=== PATIENT | female | born 1955 | race Hispanic/Latino ===

== ENCOUNTER 2017-10-20 18:06 | Observation (INO) | payer MEDICARE, OTHER ==
[2017-10-20 18:25] VITALS: BMI 42.9
[2017-10-20 19:40] LABS: BASO # 0.04 K/mm3 (0.0-2.0); BASO % 0.3 % (0.0-3.0); EOS % 0.2 % (1.5-5.0); GRAN # 11.83 (1.4-6.5); GRAN % 83.9 % (50.0-68.0); HEMOGLOBIN 14.1 g/dL (12.0-16.0); LYMPH # 1.1 (1.2-3.4); LYMPH % 7.7 % (22.0-35.0); MEAN CELL VOLUME 97.2 fl (80.0-105.0); MEAN CORPUSCULAR HEMOGLOBIN 32.9 pg (25.0-35.0); MEAN CORPUSCULAR HGB CONC 33.9 g/dl (31.0-37.0); MEAN PLATELET VOLUME 10.9 fl (7.0-11.0); MONO # 1.1 (0.1-0.6); MONO % 7.9 % (1.0-6.0); RBC 4.28 10^6/uL (3.5-6.1); RED CELL DISTRIBUTION WIDTH 13.3 % (11.5-14.5); WHITE BLOOD COUNT 14.1 10^3/ul (4.5-11.0)
[2017-10-20 19:53] LABS: ALB/GLOB RATIO 1.3 (1.1-1.8); ALT/SGPT 38 U/L (7-56); AMYLASE 43 U/L (35-125); AST/SGOT 35 U/L (14-36); BLOOD UREA NITROGEN 14 mg/dL (7-21); CALCIUM 9.4 mg/dL (8.4-10.5); GFR AFRICAN-AMERICAN > 60; GFR NON-AFRICAN AMERICAN > 60; LIPASE 63 U/L (23-300)
[2017-10-20] MEDS ORDERED: Morphine 4 mg/ml ISec IVP STA (20:08)
[2017-10-20] MEDS ORDERED: Sodium Chloride 0.9% 1,000 ML IV STA (20:08)
[2017-10-20] MEDS ORDERED: Iohexol 350 MG/100 ML VIAL ONE (20:15)
[2017-10-20 20:26] LABS: VENOUS BLOOD GAS BASE EXCESS 1.2 mmol/L (0.0-2.0); VENOUS BLOOD GAS PO2 137 mm/Hg (30-55); VENOUS BLOOD PH 7.41 (7.32-7.43)
[2017-10-20 20:38] LABS: URINE BILIRUBIN NEGATIVE (NEGATIVE); URINE BLOOD LARGE (NEGATIVE); URINE GLUCOSE (UA) NEGATIVE (NEGATIVE); URINE LEUKOCYTE ESTERASE MODERATE Leu/uL (NEGATIVE); URINE NITRATE NEGATIVE (NEGATIVE); URINE PROTEIN 30 mg/dL (<30 mg/dL); URINE UROBILINOGEN 0.2 E.U./dL (<1 E.U./dL)
[2017-10-20 20:39] LABS: URINE APPEARANCE CLEAR (CLEAR); URINE COLOR YELLOW (YELLOW)
[2017-10-20 20:46] LABS: URINE RBC 20 - 25 /hpf (0-2)
[2017-10-20 20:47] LABS: URINE AMORPHOUS SEDIMENT FEW; URINE BACTERIA MANY (NEG)
[2017-10-20] MEDS ORDERED: cefTRIAXone 1 gm 1 GM/100 ML BAG IVPB STA (21:15)
--- NOTE | 2017-10-20 21:20 | ED PDOC ---
Arrival/HPI - General Historian: Patient - History of Present Illness Time/Duration: Other (3 days) Symptom Onset: Gradual Symptom Course: Worsening Quality: Aching, Stabbing Severity Level: 6 <Mally Lanza - Last Filed: 10/20/17 21:17> <Destiny Dang - Last Filed: 10/20/17 22:04> - General Chief Complaint: Abdominal Pain Time Seen by Provider: 10/20/17 18:32 - History of Present Illness Narrative History of Present Illness (Text): 10/20/17 21:17 62-year-old female presents today with a 3 day history of right-sided abdominal pain. Patient states she thought initially that she may have a urinary tract infection could she felt some pain in the lower abdomen. She denies urinary frequency or urgency. Patient states over the past 3 days the pain has radiated into the upper abdomen and to the right flank. Patient complaining of fever and chills. Patient denies chest pain or shortness of breath. Denies dizziness or weakness. Patient denies URI symptoms. Patient states she has a chronic cough. Patient denies vomiting or diarrhea. Denies hematuria. 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 Ganglion cyst - Anesthesia Hx Anesthesia: Yes Hx Anesthesia Reactions: No Hx Malignant Hyperthermia: No <Mally Lanza - Last Filed: 10/20/17 21:17> Family/Social History - Physician Review Nursing Documentation Reviewed: Yes Family/Social History: Unknown Family HX Smoking Status: Heavy Smoker > 10 Cigarettes Daily Hx Alcohol Use: No Hx Substance Use: No <Mally Lanza - Last Filed: 10/20/17 21:17> Allergies/Home Meds <Mally Lanza - Last Filed: 10/20/17 21:17> <Destiny Dang - Last Filed: 10/20/17 22:04> Allergies/Adverse Reactions: Allergies No Known Allergies Allergy (Verified 08/07/16 00:12) Review of Systems - Review of Systems Constitutional: Fatigue, Fevers Respiratory: Cough. absent: SOB Cardiovascular: absent: Chest Pain, Palpitations Gastrointestinal: Abdominal Pain. absent: Diarrhea, Nausea, Vomiting Genitourinary Female: absent: Dysuria, Frequency, Hematuria Musculoskeletal: Back Pain. absent: Arthralgias, Neck Pain Skin: absent: Rash, Pruritis Neurological: absent: Headache, Dizziness Psychiatric: absent: Anxiety, Depression <Mally Lanza - Last Filed: 10/20/17 21:17> Physical Exam Vital Signs Reviewed: Yes Temperature: Afebrile Blood Pressure: Hypertensive Pulse: Tachycardic Respiratory Rate: Normal Appearance: Positive for: Well-Appearing, Non-Toxic, Uncomfortable Pain Distress: Mild Mental Status: Positive for: Alert and Oriented X 3 - Systems Exam Head: Present: Atraumatic Neck: Present: Normal Range of Motion Respiratory/Chest: Present: Clear to Auscultation. No: Tachypneic Cardiovascular: Present: Tachycardic Abdomen: Present: Normal Bowel Sounds, Guarding. No: Tenderness (ruq, rlq tenderness), Distention, Peritoneal Signs, Rebound Back: Present: Normal Inspection, CVA Tenderness (right sided). No: Midline Tenderness, Paraspinal Tenderness Neurological: Present: GCS=15, Speech Normal Skin: Present: Warm, Dry, Normal Color. No: Rashes Psychiatric: Present: Alert, Oriented x 3 <Mally Lanza - Last Filed: 10/20/17 21:17> Vital Signs Temp Pulse Resp BP Pulse Ox 10/20/17 21:58 82 18 115/62 93 L 10/20/17 18:06 99.7 F H 115 H 18 144/77 93 L Medical Decision Making <Mally Lanza - Last Filed: 10/20/17 21:17> <Destiny Dang - Last Filed: 10/20/17 22:04> ED Course and Treatment: 10/20/17 21:22 62-year-old female with right upper and lower quadrant abdominal pain. Low- grade fever, tachycardic. CBC 14.1 CMP wnl Lipase wnl Urinalysis + leukocytes, + bacteria, + wbcs rapid flu negative cxr; wnl blood and urine cultures pending. EKG; pt with UTI, abdominal pain, cva tenderness with fever/tachycardia. will start rocpehin IV. 10/20/17 21:24 case signed out to dr. dang pending CT results and re-evaluation. (Mally Lanza) 10/20/17 21:53 1. There is mild hypodense fatty infiltration of the liver. Mild hepatomegaly. 2. Diverticulosis. 3. There is a 1.0 x 0.8 cm hypodense left adrenal nodule, indeterminate in etiology. This can be further evaluated with a nonemergent MRI. 4. Additional CT findings described above. 10/20/17 22:03 Patient has R CVA tenderness, sirs criteria on arrival, with elevated wbc. Will transfer to observation of pyelonephritis (Destiny Dang) - Lab Interpretations Lab Results: 10/20/17 19:20 10/20/17 19:20 Lab Results 10/20/17 20:30: Urine Color Yellow, Urine Appearance Clear, Urine pH 7.0, Ur Specific [place] 1.015, Urine Protein 30 H, Urine Glucose (UA) Negative, Urine Ketones Negative, Urine Blood Large H, Urine Nitrate Negative, Urine Bilirubin Negative, Urine Urobilinogen 0.2, Ur Leukocyte Esterase Moderate H, Urine RBC 20 - 25, Urine WBC 10 - 15, Ur Epithelial Cells 4 - 5, Amorphous Sediment Few, Urine Bacteria Many, Urine Other Uyeast 10/20/17 20:00: pO2 137 H, VBG pH 7.41, VBG pCO2 41.0, VBG HCO3 26.0, VBG Total CO2 27.3, VBG O2 Sat (Calc) 99.2 H, VBG Base Excess 1.2, VBG Potassium 3.9, Glucose 136 H, Lactate 1.0, FiO2 21.0, Sodium 132.0, Chloride 100.0, Venous Blood Potassium 3.9 10/20/17 19:20: WBC 14.1 H, RBC 4.28, Hgb 14.1, Hct 41.6, MCV 97.2, MCH 32.9, MCHC 33.9, RDW 13.3, Plt Count 197, MPV 10.9, Gran % 83.9 H, Lymph % (Auto) 7.7 L, [place] % (Auto) 7.9 H, Eos % (Auto) 0.2 L, Baso % (Auto) 0.3, Gran # 11.83 H, Lymph # (Auto) 1.1 L, [place] # (Auto) 1.1 H, Eos # (Auto) 0.0, Baso # (Auto) 0.04 10/20/17 19:20: Sodium 134, Potassium 4.1, Chloride 98, Carbon Dioxide 25, Anion Gap 14, BUN 14, Creatinine 0.7, Est GFR ( Amer) > 60, Est GFR (Non- Af Amer) > 60, Random Glucose 127 H, Calcium 9.4, Total Bilirubin 1.2, AST 35, ALT 38, Alkaline Phosphatase 71, Total Protein 7.1, Albumin 4.0, Globulin 3.2, Albumin/Globulin Ratio 1.3, Amylase 43, Lipase 63 10/20/17 19:20: Influenza Typ A,B (EIA) Negative for flu a/b - RAD Interpretation Radiology Orders: 10/20/17 19:00 ABD & PELVIS IV CONTRAST ONLY [CT] Stat CHEST PORTABLE [RAD] Stat - Medication Orders Current Medication Orders: Discontinued Medications Acetaminophen (Tylenol 325mg Tab) 975 mg PO STAT STA Stop: 10/20/17 20:18 Last Admin: 10/20/17 20:20 Dose: 975 mg MAR Pain/Vitals Document 10/20/17 20:20 EQ (Rec: 10/20/17 20:20 EQ [id number]) Pain Reassessment Is This A Pain ReAssessment? No Sleep Is patient sleeping during reassessment? No Presence of Pain Presence of Pain Yes Sodium Chloride (Sodium Chloride 0.9%) 1,000 mls @ 999 mls/hr IV .Q1H1M STA Stop: 10/20/17 21:08 Last Admin: 10/20/17 20:19 Dose: 999 mls/hr eMAR Start Stop Document 10/20/17 20:19 EQ (Rec: 10/20/17 20:19 EQ [id number]) Intravenous Solution Start Date 10/20/17 Start Time 20:19 Ceftriaxone Sodium (Rocephin 1 Gram Ivpb) 1 gm in 100 mls @ 200 mls/hr IVPB STAT STA PRN Reason: Protocol Stop: 10/20/17 21:44 Morphine Sulfate (Morphine) 4 mg IVP STAT STA Stop: 10/20/17 20:09 Last Admin: 10/20/17 20:18 Dose: 4 mg MAR Pain Assessment Document 10/20/17 20:18 EQ (Rec: 10/20/17 20:18 EQ [id number]) Pain Reassessment Is this a pain reassessment? No Sleep Is patient sleeping during reassessment? No Presence of Pain Presence of Pain Yes Pain Scale Used Pain Scale Used Numeric IVP Administration Document 10/20/17 20:18 EQ (Rec: 10/20/17 20:18 EQ [id number]) Charges for Administration # of IVP Administrations 1 Disposition/Present on Arrival - Present on Arrival Any Indicators Present on Arrival: No History of DVT/PE: No History of Uncontrolled Diabetes: No Urinary Catheter: No History of Decub. Ulcer: No History Surgical Site Infection Following: None - Disposition Have Diagnosis and Disposition been Completed?: Yes <Mally Lanza - Last Filed: 10/20/17 21:17> - Present on Arrival Any Indicators Present on Arrival: No - Disposition Have Diagnosis and Disposition been Completed?: Yes Disposition Time: 22:04 Patient Plan: Admission <Destiny Dang - Last Filed: 10/20/17 22:04> - Disposition Diagnosis: Pyelonephritis Disposition: HOSPITALIZED Patient Problems: Current Active Problems Problem Status Onset Pyelonephritis Acute Condition: FAIR Forms: [facility] (Macedonian)
--- NOTE | 2017-10-20 21:50 | CT ---
EXAM: CT Abdomen and Pelvis With Intravenous Contrast EXAM DATE/TIME: 10/20/2017 7:00 PM CLINICAL HISTORY: The patient age is 62 years old and is female; Pain and signs and symptoms; Other: Chills; Abdominal pain; Localized; Right; Prior surgery; Surgery date: 6+ months; Surgery type: HX hysterectomy, HX ureter/bladder surgery; Additional info: Right sided abdominal pain Facility exam id and description: Ct abdpelciv abd pelvis iv contrast only TECHNIQUE: Axial computed tomography images of the abdomen and pelvis with intravenous contrast. All CT scans at this facility use one or more dose reduction techniques, viz.: automated exposure control; ma/kV adjustment per patient size (including targeted exams where dose is matched to indication; i.e. head); or iterative reconstruction technique. Coronal and sagittal reformatted images were created and reviewed. CONTRAST: 100 mL of OMNIPAQUE 350 administered intravenously. COMPARISON: No relevant prior studies available. FINDINGS: Lower thorax: Mild atelectatic change or parenchymal scarring is visualized within the right middle lobe. ABDOMEN: Liver: There is mild hypodense fatty infiltration of the liver. The liver measures 19.4 cm in the craniocaudad dimension, consistent with mild hepatomegaly. No visualized hepatic mass. Gallbladder and bile ducts: No calcified stones. No ductal dilation. Pancreas: Normal contour, without acute peripancreatic stranding. Spleen: No splenomegaly. Adrenals: There is a 1.0 x 0.8 cm hypodense left adrenal nodule, indeterminate in etiology. Kidneys and ureters: No hydronephrosis. No solid mass. Stomach and bowel: Colonic diverticula are identified, without acute inflammatory stranding of the adjacent mesentery. Appendix: No findings to suggest acute appendicitis. PELVIS: Bladder: No mass. Reproductive: The uterus is absent. There is mild stranding or scarring within the adnexa. ABDOMEN and PELVIS: Intraperitoneal space: No free air. Bones/joints: Hypertrophic degenerative changes are noted within the spine. Soft tissues: There is minimal herniation of fat into the umbilicus. There is diastases of the rectus abdominis musculature with mild eventration of the ventral abdominal wall. There is a subcentimeter focus of gas within the subcutaneous tissues of the right ventral abdomen. Vasculature: There is atherosclerotic calcification of the abdominal aorta. No abdominal aortic aneurysm. Lymph nodes: No significant retroperitoneal or intrapelvic lymphadenopathy. IMPRESSION: 1. There is mild hypodense fatty infiltration of the liver. Mild hepatomegaly. 2. Diverticulosis. 3. There is a 1.0 x 0.8 cm hypodense left adrenal nodule, indeterminate in etiology. This can be further evaluated with a nonemergent MRI. 4. Additional CT findings described above.
[2017-10-20] MEDS ORDERED: Albuterol-Ipratrop 3 mg / 0.5 (3 ml) UD IH PRN (23:41)
[2017-10-20] MEDS ORDERED: Sodium Chloride 0.9% 1,000 ML IV SCH (23:45)
--- NOTE | 2017-10-20 23:51 | CP.PCM.HP ---
<Peterson Horvath - Last Filed: 10/20/17 23:58> History of Present Illness - History of Present Illness History of Present Illness: 62-year-old female with past medical history of HTN and COPD presents today with 3 day history of right-sided abdominal pain/flank pain. Patient states she first felt pain on her right flank several days ago. At first she believed she just had a urinary tract infection. She described the pain as sharp and 6/10. She took some naproxen, but it did not help the pain. Patient then states today it spread to where she could feel the pain in her RUQ. thought initially that she may have a urinary tract infection could she felt some pain in the lower abdomen. Along with the pain patient reports having subjective fevers and chills. She denies urinary frequency, urgency, hematuria, chest pain, shortness of breath, nausea, vomiting, or any other complaints at this time. PMH: HTN, COPD PSH: hysterectomy Allergies: NKDA Meds: Amlodipine 5mg, Losartan/HCTZ 100-12.5, Bevespi Social: pack of cigarettes for past 50 years, denies alcohol or illicit drug use Family hx: denies Present on Admission - Present on Admission Any Indicators Present on Admission: No Review of Systems - Constitutional Constitutional: Chills, Fever. absent: Headache - EENT Eyes: absent: Blurred Vision, Change in Vision - Cardiovascular Cardiovascular: absent: Chest Pain, Dyspnea - Respiratory Respiratory: absent: Cough, Dyspnea, Chest Congestion - Gastrointestinal Gastrointestinal: Abdominal Pain. absent: Nausea, Vomiting - Genitourinary Genitourinary: Flank Pain. absent: Difficulty Urinating, Dysuria, Hematuria, Urinary Incontinence, Urinary Frequency, Urinary Hesitance, Urinary Urgency - Musculoskeletal Musculoskeletal: absent: Arthralgias, Joint Swelling - Neurological Neurological: absent: Dizziness, Syncope, Vertigo, Weakness Past Patient History - Infectious Disease Hx of Infectious Diseases: None - Past Social History Smoking Status: Heavy Smoker > 10 Cigarettes Daily - CARDIAC Hx Hypertension: Yes - PULMONARY Hx Chronic Obstructive Pulmonary Disease (COPD): Yes - MUSCULOSKELETAL/RHEUMATOLOGICAL Other/Comment: Reynaud's disease - PSYCHIATRIC Hx Psychophysiologic Disorder: No Hx Substance Use: No - SURGICAL HISTORY Hx Hysterectomy: Yes Other/Comment: Abscess drainage. Ganglion cyst - ANESTHESIA Hx Anesthesia: Yes Hx Anesthesia Reactions: No Hx Malignant Hyperthermia: No Meds Home Medications: Home Medication List Medication Instructions Recorded Confirmed Type Ciprofloxacin [Cipro] 500 mg PO BID 5 Days tab 10/21/17 Rx Allergies/Adverse Reactions: Allergies Allergy/AdvReac Type Severity Reaction Status Date / Time No Known Allergies Allergy Verified 08/07/16 00:12 Physical Exam - Constitutional Appears: Non-toxic, No Acute Distress - Head Exam Head Exam: ATRAUMATIC, NORMAL INSPECTION, NORMOCEPHALIC - Eye Exam Eye Exam: EOMI, Normal appearance, PERRL - ENT Exam ENT Exam: Mucous Membranes Moist - Neck Exam Neck exam: Negative for: Lymphadenopathy, Tenderness - Respiratory Exam Respiratory Exam: Clear to Auscultation Bilateral, NORMAL BREATHING PATTERN - Cardiovascular Exam Cardiovascular Exam: REGULAR RHYTHM, +S1, +S2 - GI/Abdominal Exam GI & Abdominal Exam: Normal Bowel Sounds, Tenderness. absent: Distended, Guarding Additional comments: RUQ tenderness to palpation - Back Exam Back exam: CVA tenderness (R) - Neurological Exam Neurological exam: Alert, Oriented x3 Results - Vital Signs Recent Vital Signs: Last Vital Signs Temp 99.7 F H 10/20/17 18:06 Pulse 82 10/20/17 21:58 Resp 18 10/20/17 21:58 BP 115/62 10/20/17 21:58 Pulse Ox 93 L 10/20/17 21:58 - Labs Result Diagrams: 10/20/17 19:20 10/20/17 19:20 Assessment & Plan - Assessment and Plan (Free Text) Assessment: 62-year-old female with past medical history of HTN and COPD presents today with 3 day history of right-sided abdominal pain/flank pain. Patient states she first felt pain on her right flank several days ago. Plan: 1. Pyelonephritis -EKG pending official read -Chest xray: no active disease -leukocytosis, wbc 14.1 -temp: 99.7 -rocephin given in ED -blood cultures, urine cultures pending -UA showing moderate leuckocyte esterase, large blood -CT Abdomen Pelvis: 1. There is mild hypodense fatty infiltration of the liver. Mild hepatomegaly. 2. Diverticulosis. 3. There is a 1.0 x 0.8 cm hypodense left adrenal nodule, indeterminate in etiology. This can be further evaluated with a nonemergent MRI. 4. Additional CT findings described above. -Continue rocephin -ID consulted, Go, follow recs -NS@100 2. COPD-chronic -duonebs prn 3. HTN-chronic -continue home Amlodipine 5 and Losartan/HCTZ 100-12.5 GI/DVT -protonix -SCD <Katie Toscano - Last Filed: 10/23/17 01:22> Results - Vital Signs Recent Vital Signs: Last Vital Signs Temp 99.7 F H 10/20/17 18:06 Pulse 82 10/20/17 21:58 Resp 18 10/20/17 23:27 BP 115/62 10/20/17 21:58 Pulse Ox 93 L 10/20/17 21:58 - Labs Result Diagrams: 10/21/17 07:00 10/21/17 07:00
[2017-10-21] MEDS ORDERED: Pantoprazole 40 mg EC Tab PO SCH (06:00)
[2017-10-21 07:43] LABS: BASO # 0.03 K/mm3 (0.0-2.0); BASO % 0.2 % (0.0-3.0); EOS % 0.1 % (1.5-5.0); GRAN # 12.3 (1.4-6.5); GRAN % 82.2 % (50.0-68.0); HEMOGLOBIN 13.6 g/dL (12.0-16.0); LYMPH # 1.2 (1.2-3.4); LYMPH % 8.1 % (22.0-35.0); MEAN CELL VOLUME 98.8 fl (80.0-105.0); MEAN CORPUSCULAR HEMOGLOBIN 32.3 pg (25.0-35.0); MEAN CORPUSCULAR HGB CONC 32.7 g/dl (31.0-37.0); MONO # 1.4 (0.1-0.6); MONO % 9.4 % (1.0-6.0); RBC 4.21 10^6/uL (3.5-6.1); RED CELL DISTRIBUTION WIDTH 13.4 % (11.5-14.5)
[2017-10-21 07:58] VITALS: RESP 20
[2017-10-21 08:02] LABS: ALB/GLOB RATIO 1.2 (1.1-1.8); ALBUMIN 3.6 g/dL (3.0-4.8); ALT/SGPT 36 U/L (7-56); AST/SGOT 25 U/L (14-36); BLOOD UREA NITROGEN 10 mg/dL (7-21); GFR AFRICAN-AMERICAN > 60; GFR NON-AFRICAN AMERICAN > 60
[2017-10-21 08:25] VITALS: BP 118/54; PULSE 94; TEMP 98; O2SAT 94
--- NOTE | 2017-10-21 09:56 | RAD ---
HISTORY: abd pain COMPARISON: 03/09/17 FINDINGS: LUNGS: No active pulmonary disease. PLEURA: No significant pleural effusion identified, no pneumothorax apparent. CARDIOVASCULAR: Normal. OSSEOUS STRUCTURES: No significant abnormalities. VISUALIZED UPPER ABDOMEN: Normal. OTHER FINDINGS: None. IMPRESSION: No active disease.
[2017-10-21] MEDS ORDERED: cefTRIAXone 2 GM IN NS 2 GM/100 ML BAG IVPB SCH (10:00)
--- NOTE | 2017-10-21 11:19 | CP.PCM.DIS ---
<Stephanie Ramsay - Last Filed: 10/22/17 13:21> Provider - Provider Date of Admission: 10/20/17 22:06 Attending physician: Marilin Mcneal MD Time Spent in preparation of Discharge (in minutes): 35 Diagnosis - Discharge Diagnosis (1) Nephrolithiasis Status: Acute (2) UTI (urinary tract infection) Status: Acute Hospital Course - Lab Results Lab Results: Most Recent Lab Values WBC 15.0 10^3/ul (4.5-11.0) H 10/21/17 07:00 RBC 4.21 10^6/uL (3.5-6.1) 10/21/17 07:00 Hgb 13.6 g/dL (12.0-16.0) 10/21/17 07:00 Hct 41.6 % (36.0-48.0) 10/21/17 07:00 MCV 98.8 fl (80.0-105.0) 10/21/17 07:00 MCH 32.3 pg (25.0-35.0) 10/21/17 07:00 MCHC 32.7 g/dl (31.0-37.0) 10/21/17 07:00 RDW 13.4 % (11.5-14.5) 10/21/17 07:00 Plt Count 183 10^3/uL (120.0-450.0) 10/21/17 07:00 MPV 11.0 fl (7.0-11.0) 10/21/17 07:00 Gran % 82.2 % (50.0-68.0) H 10/21/17 07:00 Lymph % (Auto) 8.1 % (22.0-35.0) L 10/21/17 07:00 [place] % (Auto) 9.4 % (1.0-6.0) H 10/21/17 07:00 Eos % (Auto) 0.1 % (1.5-5.0) L 10/21/17 07:00 Baso % (Auto) 0.2 % (0.0-3.0) 10/21/17 07:00 Gran # 12.30 (1.4-6.5) H 10/21/17 07:00 Lymph # (Auto) 1.2 (1.2-3.4) 10/21/17 07:00 [place] # (Auto) 1.4 (0.1-0.6) H 10/21/17 07:00 Eos # (Auto) 0.0 (0.0-0.7) 10/21/17 07:00 Baso # (Auto) 0.03 K/mm3 (0.0-2.0) 10/21/17 07:00 pO2 137 mm/Hg (30-55) H 10/20/17 20:00 VBG pH 7.41 (7.32-7.43) 10/20/17 20:00 VBG pCO2 41.0 (40-60) 10/20/17 20:00 VBG HCO3 26.0 mmol/l (21-28) 10/20/17 20:00 VBG Total CO2 27.3 mmol.L (22-28) 10/20/17 20:00 VBG O2 Sat (Calc) 99.2 % (40-65) H 10/20/17 20:00 VBG Base Excess 1.2 mmol/L (0.0-2.0) 10/20/17 20:00 VBG Potassium 3.9 mmol/L (3.6-5.2) 10/20/17 20:00 Sodium 132.0 mmol/L (132-148) 10/20/17 20:00 Chloride 100.0 mmol/L (98-107) 10/20/17 20:00 Glucose 136 mg/dl (65-105) H 10/20/17 20:00 Lactate 1.0 mmol/L (0.7-2.1) 10/20/17 20:00 FiO2 21.0 % 10/20/17 20:00 Sodium 138 mmol/L (132-148) 10/21/17 07:00 Potassium 3.8 mmol/L (3.6-5.0) 10/21/17 07:00 Chloride 103 mmol/L (98-107) 10/21/17 07:00 Carbon Dioxide 27 mmol/L (21-33) 10/21/17 07:00 Anion Gap 12 (10-20) 10/21/17 07:00 BUN 10 mg/dL (7-21) 10/21/17 07:00 Creatinine 0.8 mg/dl (0.7-1.2) 10/21/17 07:00 Est GFR ( Amer) > 60 10/21/17 07:00 Est GFR (Non-Af Amer) > 60 10/21/17 07:00 Random Glucose 143 mg/dL (70-110) H 10/21/17 07:00 Calcium 9.0 mg/dL (8.4-10.5) 10/21/17 07:00 Total Bilirubin 1.2 mg/dL (0.2-1.3) 10/21/17 07:00 AST 25 U/L (14-36) 10/21/17 07:00 ALT 36 U/L (7-56) 10/21/17 07:00 Alkaline Phosphatase 62 U/L (38-126) 10/21/17 07:00 Total Protein 6.5 g/dL (5.8-8.3) 10/21/17 07:00 Albumin 3.6 g/dL (3.0-4.8) 10/21/17 07:00 Globulin 2.9 gm/dL 10/21/17 07:00 Albumin/Globulin Ratio 1.2 (1.1-1.8) 10/21/17 07:00 Amylase 43 U/L (35-125) 10/20/17 19:20 Lipase 63 U/L (23-300) 10/20/17 19:20 Venous Blood Potassium 3.9 mmol/L (3.6-5.2) 10/20/17 20:00 Urine Color Yellow (YELLOW) 10/20/17 20:30 Urine Appearance Clear (CLEAR) 10/20/17 20:30 Urine pH 7.0 (4.7-8.0) 10/20/17 20:30 Ur Specific Kite 1.015 (1.005-1.035) 10/20/17 20:30 Urine Protein 30 mg/dL (<30 mg/dL) H 10/20/17 20:30 Urine Glucose (UA) Negative mg/dL (NEGATIVE) 10/20/17 20:30 Urine Ketones Negative mg/dL (NEGATIVE) 10/20/17 20:30 Urine Blood Large (NEGATIVE) H 10/20/17 20:30 Urine Nitrate Negative (NEGATIVE) 10/20/17 20:30 Urine Bilirubin Negative (NEGATIVE) 10/20/17 20:30 Urine Urobilinogen 0.2 E.U./dL (<1 E.U./dL) 10/20/17 20:30 Ur Leukocyte Esterase Moderate Vargas/uL (NEGATIVE) H 10/20/17 20:30 Urine RBC 20 - 25 /hpf (0-2) 10/20/17 20:30 Urine WBC 10 - 15 /hpf (0-6) 10/20/17 20:30 Ur Epithelial Cells 4 - 5 /hpf (0-5) 10/20/17 20:30 Amorphous Sediment Few 10/20/17 20:30 Urine Bacteria Many (NEG) 10/20/17 20:30 Urine Other Uyeast 10/20/17 20:30 Influenza Typ A,B (EIA) Negative for flu a/b (NEGATIVE) 10/20/17 19:20 - Hospital Course Hospital Course: 62-year-old female with past medical history of HTN and COPD presents today with 3 day history of right-sided flank pain for past few days that radiates to the right groin. CT abdomen showed mild hypodense fatty infiltration of the liver. Mild hepatomegaly, diverticulosis, 1.0 x 0.8 cm hypodense left adrenal nodule, indeterminate in etiology. Pt admitted to dark urine. UA positive for infection and blood. Pt denies urinary symptoms. Pt given IV antibiotics, IV hydration. Pt tolerating food well, afebrile with stable vitals. Denies pain this morning. Pt likely passed stone earlier in ED, pt discharged home, advised to drink plenty of fluids, given antibiotics for UTI. Pt advised to f/u with bushing and broach operator for left adrenal nodule. Discharge Exam - Head Exam Head Exam: ATRAUMATIC, NORMAL INSPECTION, NORMOCEPHALIC - Eye Exam Eye Exam: EOMI, PERRL. absent: Conjunctival injection, Scleral icterus Pupil Exam: NORMAL ACCOMODATION, PERRL. absent: Irregular, Unequal - ENT Exam ENT Exam: Mucous Membranes Moist - Neck Exam Neck exam: Full Rom - Respiratory Exam Respiratory Exam: Clear to PA & Lateral, NORMAL BREATHING PATTERN, UNREMARKABLE. absent: Accessory Muscle Use, Chest Wall Tenderness, Rales, Rhonchi, Respiratory Distress, Stridor - Cardiovascular Exam Cardiovascular Exam: RRR, +S1, +S2. absent: Systolic Murmur - GI/Abdominal Exam GI & Abdominal Exam: Normal Bowel Sounds, Soft. absent: Diminished Bowel Sounds , Distended, Firm, Guarding, Tenderness - Extremities Exam Extremities exam: normal inspection - Back Exam Back exam: NORMAL INSPECTION. absent: CVA tenderness (L), CVA tenderness (R) - Neurological Exam Neurological exam: Alert, Oriented x3 - Psychiatric Exam Psychiatric exam: Normal Affect, Normal Mood - Skin Skin Exam: Dry, Normal Color, Warm Discharge Plan - Discharge Medications Prescriptions: Ciprofloxacin [Cipro] 500 mg PO BID 5 Days tab - Follow Up Plan Condition: FAIR Disposition: HOME/ ROUTINE Instructions: Kidney Stones (DC), Urinary Tract Infection in Women (DC) Additional Instructions: - Take Ciprofloxacin 500 mg PO BID for 5 days. - Pt has a hypodense 1.0 x 0.8 cm hypodense left adrenal nodule. F/u outpatient with bushing and broach operator/ PMD in 1 week. - Drink adequate liquids. - F/u with PMD in 1 week. - Return to ER if any concerns. <Marilin Mcneal - Last Filed: 10/22/17 14:05> Provider - Provider Date of Admission: 10/20/17 22:06 Attending physician: Marilin Mcneal MD Hospital Course - Lab Results Lab Results: Most Recent Lab Values WBC 15.0 10^3/ul (4.5-11.0) H 10/21/17 07:00 RBC 4.21 10^6/uL (3.5-6.1) 10/21/17 07:00 Hgb 13.6 g/dL (12.0-16.0) 10/21/17 07:00 Hct 41.6 % (36.0-48.0) 10/21/17 07:00 MCV 98.8 fl (80.0-105.0) 10/21/17 07:00 MCH 32.3 pg (25.0-35.0) 10/21/17 07:00 MCHC 32.7 g/dl (31.0-37.0) 10/21/17 07:00 RDW 13.4 % (11.5-14.5) 10/21/17 07:00 Plt Count 183 10^3/uL (120.0-450.0) 10/21/17 07:00 MPV 11.0 fl (7.0-11.0) 10/21/17 07:00 Gran % 82.2 % (50.0-68.0) H 10/21/17 07:00 Lymph % (Auto) 8.1 % (22.0-35.0) L 10/21/17 07:00 [place] % (Auto) 9.4 % (1.0-6.0) H 10/21/17 07:00 Eos % (Auto) 0.1 % (1.5-5.0) L 10/21/17 07:00 Baso % (Auto) 0.2 % (0.0-3.0) 10/21/17 07:00 Gran # 12.30 (1.4-6.5) H 10/21/17 07:00 Lymph # (Auto) 1.2 (1.2-3.4) 10/21/17 07:00 [place] # (Auto) 1.4 (0.1-0.6) H 10/21/17 07:00 Eos # (Auto) 0.0 (0.0-0.7) 10/21/17 07:00 Baso # (Auto) 0.03 K/mm3 (0.0-2.0) 10/21/17 07:00 pO2 137 mm/Hg (30-55) H 10/20/17 20:00 VBG pH 7.41 (7.32-7.43) 10/20/17 20:00 VBG pCO2 41.0 (40-60) 10/20/17 20:00 VBG HCO3 26.0 mmol/l (21-28) 10/20/17 20:00 VBG Total CO2 27.3 mmol.L (22-28) 10/20/17 20:00 VBG O2 Sat (Calc) 99.2 % (40-65) H 10/20/17 20:00 VBG Base Excess 1.2 mmol/L (0.0-2.0) 10/20/17 20:00 VBG Potassium 3.9 mmol/L (3.6-5.2) 10/20/17 20:00 Sodium 132.0 mmol/L (132-148) 10/20/17 20:00 Chloride 100.0 mmol/L (98-107) 10/20/17 20:00 Glucose 136 mg/dl (65-105) H 10/20/17 20:00 Lactate 1.0 mmol/L (0.7-2.1) 10/20/17 20:00 FiO2 21.0 % 10/20/17 20:00 Sodium 138 mmol/L (132-148) 10/21/17 07:00 Potassium 3.8 mmol/L (3.6-5.0) 10/21/17 07:00 Chloride 103 mmol/L (98-107) 10/21/17 07:00 Carbon Dioxide 27 mmol/L (21-33) 10/21/17 07:00 Anion Gap 12 (10-20) 10/21/17 07:00 BUN 10 mg/dL (7-21) 10/21/17 07:00 Creatinine 0.8 mg/dl (0.7-1.2) 10/21/17 07:00 Est GFR ( Amer) > 60 10/21/17 07:00 Est GFR (Non-Af Amer) > 60 10/21/17 07:00 Random Glucose 143 mg/dL (70-110) H 10/21/17 07:00 Calcium 9.0 mg/dL (8.4-10.5) 10/21/17 07:00 Total Bilirubin 1.2 mg/dL (0.2-1.3) 10/21/17 07:00 AST 25 U/L (14-36) 10/21/17 07:00 ALT 36 U/L (7-56) 10/21/17 07:00 Alkaline Phosphatase 62 U/L (38-126) 10/21/17 07:00 Total Protein 6.5 g/dL (5.8-8.3) 10/21/17 07:00 Albumin 3.6 g/dL (3.0-4.8) 10/21/17 07:00 Globulin 2.9 gm/dL 10/21/17 07:00 Albumin/Globulin Ratio 1.2 (1.1-1.8) 10/21/17 07:00 Amylase 43 U/L (35-125) 10/20/17 19:20 Lipase 63 U/L (23-300) 10/20/17 19:20 Procalcitonin 0.31 NG/ML (0.19-0.49) 10/21/17 08:15 Venous Blood Potassium 3.9 mmol/L (3.6-5.2) 10/20/17 20:00 Urine Color Yellow (YELLOW) 10/20/17 20:30 Urine Appearance Clear (CLEAR) 10/20/17 20:30 Urine pH 7.0 (4.7-8.0) 10/20/17 20:30 Ur Specific Kite 1.015 (1.005-1.035) 10/20/17 20:30 Urine Protein 30 mg/dL (<30 mg/dL) H 10/20/17 20:30 Urine Glucose (UA) Negative mg/dL (NEGATIVE) 10/20/17 20:30 Urine Ketones Negative mg/dL (NEGATIVE) 10/20/17 20:30 Urine Blood Large (NEGATIVE) H 10/20/17 20:30 Urine Nitrate Negative (NEGATIVE) 10/20/17 20:30 Urine Bilirubin Negative (NEGATIVE) 10/20/17 20:30 Urine Urobilinogen 0.2 E.U./dL (<1 E.U./dL) 10/20/17 20:30 Ur Leukocyte Esterase Moderate Vargas/uL (NEGATIVE) H 10/20/17 20:30 Urine RBC 20 - 25 /hpf (0-2) 10/20/17 20:30 Urine WBC 10 - 15 /hpf (0-6) 10/20/17 20:30 Ur Epithelial Cells 4 - 5 /hpf (0-5) 10/20/17 20:30 Amorphous Sediment Few 10/20/17 20:30 Urine Bacteria Many (NEG) 10/20/17 20:30 Urine Other Uyeast 10/20/17 20:30 Influenza Typ A,B (EIA) Negative for flu a/b (NEGATIVE) 10/20/17 19:20 Attending/Attestation - Attestation I have personally seen and examined this patient.: Yes I have fully participated in the care of the patient.: Yes I have reviewed all pertinent clinical information, including history, physical exam and plan: Yes Notes (Text): 10/22/17 14:02 Patient was seen and examined with medical transcription. Agreed with assessment and plan. 62 F was admitted with Flank pain, no H/O fever or dysurea. UA shows possible UTI.Cultures are negative.Patient pain has improved.She is tolerating diet.She will be discharged home on oral antibiotic and will follow up with PCP. Patient is found to have incidental adrenal nodule, will need out patient work, it was discussed in detail with her. Management plan was discussed in detail with patient. Education was provided.
--- NOTE | 2017-10-21 17:03 | CP.PCM.CON ---
History of Present Illness - History of Present Illness History of Present Illness: Infectious Disease Consultation: October 21, 2017 62 yo female with medical history of HTN and COPD presented with 3 day history of right sided abdominal/flank pain. She rates pain as 6 out of 10. She reports subjective fevers and chills. She was not on antibiotics prior to hospitalization. The patient is able to tolerate solids and liquids. No other complaints. In hospital, no fevers and mild leukocytosis. PMHx: HTN, COPD PSHx: Hysterectomy Allergies: NKDA Social Hx: 1 ppd tobacco use for last 50 years NO EtOH or illicit drug use. Medications: Amlodipine Losartan HCTZ Bevespi Family Hx: none given ROS: Abdominal pain, chills, subjective fevers No chest pain, melena, hematuria, hematemesis, hematochezia, depression, anxiety , diarrhea, vision loss, hearing loss, loss of consciousness, headaches, dizziness, SOB Past Patient History - Infectious Disease Hx of Infectious Diseases: None - Past Social History Smoking Status: Heavy Smoker > 10 Cigarettes Daily - CARDIAC Hx Hypertension: Yes - PULMONARY Hx Chronic Obstructive Pulmonary Disease (COPD): Yes - MUSCULOSKELETAL/RHEUMATOLOGICAL Other/Comment: Reynaud's disease - PSYCHIATRIC Hx Psychophysiologic Disorder: No Hx Substance Use: No - SURGICAL HISTORY Hx Hysterectomy: Yes Other/Comment: Abscess drainage. Ganglion cyst - ANESTHESIA Hx Anesthesia: Yes Hx Anesthesia Reactions: No Hx Malignant Hyperthermia: No Meds Home Medications: Home Medication List Medication Instructions Recorded Confirmed Type Ciprofloxacin [Cipro] 500 mg PO BID 5 Days tab 10/21/17 Rx Allergies/Adverse Reactions: Allergies Allergy/AdvReac Type Severity Reaction Status Date / Time No Known Allergies Allergy Verified 08/07/16 00:12 Physical Exam - Constitutional Appears: Non-toxic, No Acute Distress - Head Exam Head Exam: ATRAUMATIC, NORMOCEPHALIC - Eye Exam Eye Exam: EOMI, PERRL Pupil Exam: NORMAL ACCOMODATION, PERRL - ENT Exam ENT Exam: Mucous Membranes Moist, Normal External Ear Exam, TM's Normal Bilaterally - Neck Exam Neck exam: Positive for: Full Rom, Normal Inspection - Respiratory Exam Respiratory Exam: Clear to Auscultation Bilateral, NORMAL BREATHING PATTERN. absent: Rales, Rhonchi, Wheezes - Cardiovascular Exam Cardiovascular Exam: REGULAR RHYTHM, RRR, +S1, +S2 - GI/Abdominal Exam GI & Abdominal Exam: Normal Bowel Sounds, Soft. absent: Distended Additional comments: questionable RUQ tenderness. - Extremities Exam Extremities exam: Positive for: full ROM, normal inspection - Neurological Exam Neurological exam: Alert, CN II-XII Intact, Oriented x3 - Psychiatric Exam Psychiatric exam: Normal Affect, Normal Mood - Skin Skin Exam: Intact, Normal Color Results - Vital Signs Recent Vital Signs: Last Vital Signs Temp 98.0 F 10/21/17 07:30 Pulse 94 H 10/21/17 07:30 Resp 20 10/21/17 07:30 BP 118/54 L 10/21/17 07:30 Pulse Ox 94 L 10/21/17 07:30 - Labs Result Diagrams: 10/21/17 07:00 10/21/17 07:00 Labs: Laboratory Results - last 24 hr 10/21/17 10/21/17 10/21/17 07:00 07:00 08:15 WBC 15.0 H RBC 4.21 Hgb 13.6 Hct 41.6 MCV 98.8 MCH 32.3 MCHC 32.7 RDW 13.4 Plt Count 183 MPV 11.0 Gran % 82.2 H Lymph % (Auto) 8.1 L [place] % (Auto) 9.4 H Eos % (Auto) 0.1 L Baso % (Auto) 0.2 Gran # 12.30 H Lymph # (Auto) 1.2 [place] # (Auto) 1.4 H Eos # (Auto) 0.0 Baso # (Auto) 0.03 Sodium 138 Potassium 3.8 Chloride 103 Carbon Dioxide 27 Anion Gap 12 BUN 10 Creatinine 0.8 Est GFR ( Amer) > 60 Est GFR (Non-Af Amer) > 60 Random Glucose 143 H Calcium 9.0 Total Bilirubin 1.2 AST 25 ALT 36 Alkaline Phosphatase 62 Total Protein 6.5 Albumin 3.6 Globulin 2.9 Albumin/Globulin Ratio 1.2 Procalcitonin 0.31 Assessment & Plan - Assessment and Plan (Free Text) Assessment: 62 yo female with mild leukocytosis and abdominal pain started on Rocephin in the ER. Urinalysis can be suggestive of UTI. Cannot rule out pyelonephritis. Urine cultures pending. On discharge can consider use of oral Keflex or Cipro/ Levaquin for treatment up to 14 days. Patient showing improvement. She states she feels better today. Thank you for allowing me to participate in the care of the patient, we will follow with you.
--- NOTE | 2017-10-21 23:49 | CARD ---
APPROVED REPORT EKG Measurement Heart [id number] <Conclusion> Normal sinus rhythm Normal ECG
== END 2017-10-21 15:11 | disposition home or self-care (01) ==
LOC: ED 18:06 → ERH 22:06 → INTOOBSV 22:06 → 5RSO 23:19
PROVIDERS: ADMIT Internal Medicine; ATTEND Internal Medicine
DX: N10 Acute pyelonephritis (principal); J44.9 Chronic obstructive pulmonary disease, unspecified; I10 Essential (primary) hypertension; K57.30 Diverticulosis of large intestine without perforation or abscess without bleeding; N20.0 Calculus of kidney; F17.210 Nicotine dependence, cigarettes, uncomplicated; K76.0 Fatty (change of) liver, not elsewhere classified; Z90.710 Acquired absence of both cervix and uterus
CPT/HCPCS: 36415; 71045; 74177; 80053; 81001; 82150; 82803; 83690; 84145; 85025; 87040; 87086; 87804; 93005; 96365; 96375; 99285; G0378; J0696; J2270; J7040; Q9967

== ENCOUNTER 2019-01-09 23:00 | Inpatient (IN) | payer MEDICARE, OTHER ==
[2019-01-09 23:21] VITALS: BMI 20.3
--- NOTE | 2019-01-09 23:40 | ED PDOC ---
Arrival/HPI - General Chief Complaint: Lower Extremity Problem/Injury Time Seen by Provider: 01/09/19 23:08 Historian: Patient - History of Present Illness Narrative History of Present Illness (Text): 01/09/19 23:37 Vicky Brown is a 63 year old female, whose past medical history includes hypertension, COPD, and hysterectomy, who presents to the ED complaining of swelling and redness to right anterior thigh. Patient states she accidentally stuck herself while sewing upLocatelystery at home a few days prior and has developed swelling and redness to her right anterior thigh, with associated discomfort to the area. Patient also notes a small area of redness to her left anterior thigh. Patient reports associated subjective fever at home. Patient denies any fever, chills, shortness of breath, nausea, vomiting, headache, dizziness, or any other complaints. 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 Ganglion cyst - Anesthesia Hx Anesthesia: Yes Hx Anesthesia Reactions: No Hx Malignant Hyperthermia: No Family/Social History - Physician Review Nursing Documentation Reviewed: Yes Family/Social History: Unknown Family HX Smoking Status: Heavy Smoker > 10 Cigarettes Daily Hx Alcohol Use: No Hx Substance Use: No Allergies/Home Meds Allergies/Adverse Reactions: Allergies No Known Allergies Allergy (Verified 08/07/16 00:12) Home Medications: Home Meds Medication Instructions Recorded Confirmed Glycopyrrolate/Formoterol Fum 10.7 gm IH BID 10/21/17 01/09/19 [Bevespi Aerosphere Inhaler] Losartan/Hydrochlorothiazide 1 each PO DAILY 10/21/17 01/09/19 [Losartan-Hctz 100-25 mg Tab] amLODIPine [Norvasc] 5 mg PO DAILY 10/21/17 01/09/19 Review of Systems - Physician Review All systems were reviewed & negative as marked: Yes - Review of Systems Constitutional: Normal. absent: Fevers Eyes: Normal ENT: Normal Respiratory: Normal. absent: SOB, Cough Cardiovascular: Normal. absent: Chest Pain Gastrointestinal: Normal. absent: Abdominal Pain, Nausea, Vomiting Genitourinary Female: Normal. absent: Dysuria, Frequency, Hematuria, Urine Output Changes Musculoskeletal: Normal. absent: Back Pain, Neck Pain Skin: Cellulitis (+bilateral thighs, greater on right) Neurological: Normal. absent: Headache, Dizziness Endocrine: Normal Hemo/Lymphatic: Normal Psychiatric: Normal Physical Exam Vital Signs Reviewed: Yes Vital Signs Temp Pulse Resp BP Pulse Ox 01/09/19 23:21 100.9 F H 93 H 18 134/89 97 Temperature: Febrile Blood Pressure: Normal Pulse: Regular Respiratory Rate: Normal Appearance: Positive for: Well-Appearing, Non-Toxic, Comfortable Pain Distress: None Mental Status: Positive for: Alert and Oriented X 3 - Systems Exam Head: Present: Atraumatic, Normocephalic Pupils: Present: PERRL Extroacular Muscles: Present: EOMI Conjunctiva: Present: Normal Mouth: Present: Moist Mucous Membranes Neck: Present: Normal Range of Motion Respiratory/Chest: Present: Clear to Auscultation, Good Air Exchange. No: Respiratory Distress, Accessory Muscle Use Cardiovascular: Present: Regular Rate and Rhythm, Normal S1, S2. No: Murmurs Abdomen: No: Tenderness, Distention, Peritoneal Signs Back: Present: Normal Inspection. No: CVA Tenderness, Midline Tenderness, Paraspinal Tenderness Upper Extremity: Present: Normal Inspection. No: Cyanosis, Edema Lower Extremity: Present: NORMAL PULSES, Normal ROM, Tenderness, Swelling (Swelling to right anterior thigh with confluent erythema and palpable tenderness), Erythema (Area of minimal erythema to left anterior thigh), Neurovascularly Intact, Capillary Refill < 2 s. No: Edema, Cyanosis Neurological: Present: GCS=15, CN II-XII Intact, Speech Normal Skin: Present: Warm, Dry, Normal Color. No: Rashes Psychiatric: Present: Alert, Oriented x 3, Normal Insight, Normal Concentration Medical Decision Making ED Course and Treatment: 01/09/19 23:38 Impression: 63 year old female complaining of redness, swelling, and discomfort to right anterior thigh, redness to left anterior thigh for the past couple of days. Plan: -- EKG -- Chest X-ray -- Labs, VBG, blood cultures -- Urinalysis, urine cultures -- IV fluids -- Tylenol -- Reassess and disposition Prior Visits: Notes and results from previous visits were reviewed. Progress Notes: 01/10/19 00:19 Chest X-ray reviewed, shows no acute processes. 01/10/19 00:45 Case discussed with chief medical technologist instructional support specialist, who is aware and agrees with plan. 01/10/19 00:[address] Moon, who is aware and agrees with plan. Accepts pt in to hospitalist service. Pt admitted to [facility] for cellulitis. 01/10/19 01:24 Reviewed EKG, NSR at [address]-segment elevations or depressions, no T-wave inversions, normal intervals. - Lab Interpretations I have reviewed the lab results: Yes - RAD Interpretation Rug Inspector Helper: ED Physician - EKG Interpretation Interpreted by ED Physician: Yes Type: 12 lead EKG - Scribe Statement The provider has reviewed the documentation as recorded by the Budibcarie Sepulveda Provider Scribe Attestation: All medical record entries made by the Scribe were at my direction and personally dictated by me. I have reviewed the chart and agree that the record accurately reflects my personal performance of the history, physical exam, medical decision making, and the department course for this patient. I have also personally directed, reviewed, and agree with the discharge instructions and disposition. Disposition/Present on Arrival - Present on Arrival Any Indicators Present on Arrival: No History of DVT/PE: No History of Uncontrolled Diabetes: No Urinary Catheter: No History of Decub. Ulcer: No History Surgical Site Infection Following: None - Disposition Have Diagnosis and Disposition been Completed?: Yes Diagnosis: Cellulitis of thigh Disposition: HOSPITALIZED Disposition Time: 00:50 Patient Plan: Admission Patient Problems: Current Active Problems Problem Status Onset Cellulitis of thigh Acute Condition: STABLE
[2019-01-09] MEDS ORDERED: Sodium Chloride 0.9% 1,000 ML IV STA (23:43)
[2019-01-10 00:24] LABS: VENOUS BLOOD GAS BASE EXCESS 2.5 mmol/L (0.0-2.0); VENOUS BLOOD GAS PO2 39 mm/Hg (30-55); VENOUS BLOOD PH 7.46 (7.32-7.43)
[2019-01-10 00:34] LABS: BASO # 0.02 K/mm3 (0.0-2.0); BASO % 0.1 % (0.0-3.0); EOS % 0.1 % (1.5-5.0); LYMPH % 6.9 % (22.0-35.0); MEAN CORPUSCULAR HGB CONC 34.8 g/dl (31.0-37.0); MEAN PLATELET VOLUME 9.1 fl (7.0-11.0); MONO % 6.6 % (1.0-6.0); RBC 3.75 10^6/uL (3.5-6.1); RED CELL DISTRIBUTION WIDTH 12.7 % (11.5-14.5); WHITE BLOOD COUNT 14.5 10^3/uL (4.5-11.0)
[2019-01-10 00:35] LABS: ALB/GLOB RATIO 1.1 (1.1-1.8); ALT/SGPT 27 U/L (7-56); AST/SGOT 35 U/L (14-36); BLOOD UREA NITROGEN 8 mg/dL (7-21); CALCIUM 8.1 mg/dL (8.4-10.5); GFR NON-AFRICAN AMERICAN > 60; INR 1.32; PARTIAL THROMBOPLASTIN TIME 29.5 Seconds (26.9-38.3); PROTHROMBIN TIME 14.6 SECONDS (9.4-12.5)
[2019-01-10] MEDS ORDERED: Piperacillin/Tazobact 3.375 gm 100 ML IV STA (00:48)
[2019-01-10] MEDS ORDERED: Vancomycin 1gm in NS 250ml 1 GM/250 ML BAG IVPB STA (00:48)
[2019-01-10] MEDS ORDERED: TDAP Vaccine 0.5 mL Syr IM ONE (00:53)
--- NOTE | 2019-01-10 01:05 | CP.PCM.HP ---
<DavidAndrez barreto - Last Filed: 01/10/19 02:52> History of Present Illness - History of Present Illness History of Present Illness: Andrez Rutledge, PGY-1 H&P Note for Dr. Red Hansen: b/l anterior thigh swelling/redness 62 year-old female with PMH of HTN and COPD, depression presents with right 3 day history of b/l anterior thigh swelling/redness/progressive pain (more on right side) after accidentally stucking herself with a needle while sewing at home. Symptoms are associated with fever, chills, diaphoresis, malaise, loss of appetite. She denied CP, SOB, palpitations, EMERSON, dizziness, N/V/D, urinary symptoms. 12 points ROS reviewed and otherwise negative except above PMH: HTN, COPD, depression PSH: hysterectomy Allergies: NKDA Meds: Losartan/HCTZ 100-12.5, Bevespi, fluoxitine, amytriptiline Social: pack of cigarettes for past 50 years, denies alcohol or illicit drug use Family hx: denies Present on Admission - Present on Admission Any Indicators Present on Admission: No Past Patient History - Infectious Disease Hx of Infectious Diseases: None - Past Social History Smoking Status: Heavy Smoker > 10 Cigarettes Daily - CARDIAC Hx Hypertension: Yes - PULMONARY Hx Chronic Obstructive Pulmonary Disease (COPD): Yes - MUSCULOSKELETAL/RHEUMATOLOGICAL Other/Comment: Reynaud's disease - PSYCHIATRIC Hx Psychophysiologic Disorder: No Hx Substance Use: No - SURGICAL HISTORY Hx Hysterectomy: Yes Other/Comment: Abscess drainage. Ganglion cyst - ANESTHESIA Hx Anesthesia: Yes Hx Anesthesia Reactions: No Hx Malignant Hyperthermia: No Meds Allergies/Adverse Reactions: Allergies Allergy/AdvReac Type Severity Reaction Status Date / Time No Known Allergies Allergy Verified 08/07/16 00:12 Physical Exam - Constitutional Appears: Well, Non-toxic, No Acute Distress - Head Exam Head Exam: ATRAUMATIC, NORMAL INSPECTION, NORMOCEPHALIC - Eye Exam Eye Exam: EOMI, Normal appearance, PERRL Pupil Exam: NORMAL ACCOMODATION, PERRL - ENT Exam ENT Exam: Mucous Membranes Dry - Neck Exam Neck exam: Positive for: Full Rom, Normal Inspection. Negative for: Tenderness - Respiratory Exam Respiratory Exam: Clear to Auscultation Bilateral, NORMAL BREATHING PATTERN. absent: Rales, Rhonchi, Wheezes - Cardiovascular Exam Cardiovascular Exam: REGULAR RHYTHM, +S1, +S2 - GI/Abdominal Exam GI & Abdominal Exam: Normal Bowel Sounds, Soft. absent: Hernia, Rebound, Tenderness - Expanded Lower Extremities Exam Right Upper Leg exam: erythema (with 8 cm rounded area of induration, fluctaution), swelling, tenderness Neuro vacular tendon exam: no vascular compromise. absent: extremity cold to to uch, sensory deficit Left Upper Leg exam: swelling (with 4 cm area of induration). absent: erythema - Back Exam Back exam: FULL ROM, NORMAL INSPECTION. absent: rash noted, tenderness - Neurological Exam Neurological exam: Alert, CN II-XII Intact, Normal Gait, Oriented x3, Reflexes Normal - Psychiatric Exam Psychiatric exam: Normal Affect, Normal Mood Additional comments: right leg weakness - Skin Skin Exam: Dry, Intact, Normal Color, Warm Results - Vital Signs Recent Vital Signs: Last Vital Signs Temp 100.9 F H 01/09/19 23:21 Pulse 93 H 01/09/19 23:21 Resp 18 01/09/19 23:21 BP 134/89 01/09/19 23:21 Pulse Ox 97 01/09/19 23:21 - Labs Result Diagrams: 01/09/19 23:45 01/09/19 23:45 Labs: Laboratory Results - last 24 hr 01/09/19 01/09/19 01/09/19 23:45 23:45 23:45 WBC 14.5 H RBC 3.75 Hgb 12.0 Hct 34.5 L MCV 92.0 D MCH 32.0 MCHC 34.8 RDW 12.7 Plt Count 345 MPV 9.1 Neut % (Auto) 86.3 H Lymph % (Auto) 6.9 L Cooper % (Auto) 6.6 H Eos % (Auto) 0.1 L Baso % (Auto) 0.1 Lymph # (Auto) 1.0 L Cooper # (Auto) 1.0 H Eos # (Auto) 0.0 Baso # (Auto) 0.02 Absolute Neuts (auto) 12.48 H PT 14.6 H INR 1.32 APTT 29.5 pO2 39 VBG pH 7.46 H VBG pCO2 37.0 L VBG HCO3 26.3 VBG Total CO2 27.4 VBG O2 Sat (Calc) 85.7 H VBG Base Excess 2.5 H VBG Potassium 4.0 Sodium 124.0 L Chloride 90.0 L Glucose 102 Lactate 0.9 FiO2 21.0 Potassium Carbon Dioxide Anion Gap BUN Creatinine Est GFR ( Amer) Est GFR (Non-Af Amer) Random Glucose Calcium Phosphorus Magnesium Total Bilirubin AST ALT Alkaline Phosphatase Total Protein Albumin Globulin Albumin/Globulin Ratio Venous Blood Potassium 4.0 01/09/19 23:45 WBC RBC Hgb Hct MCV MCH MCHC RDW Plt Count MPV Neut % (Auto) Lymph % (Auto) Cooper % (Auto) Eos % (Auto) Baso % (Auto) Lymph # (Auto) Cooper # (Auto) Eos # (Auto) Baso # (Auto) Absolute Neuts (auto) PT INR APTT pO2 VBG pH VBG pCO2 VBG HCO3 VBG Total CO2 VBG O2 Sat (Calc) VBG Base Excess VBG Potassium Sodium 124 L Chloride 90 L Glucose Lactate FiO2 Potassium 4.0 Carbon Dioxide 25 Anion Gap 13 BUN 8 Creatinine 0.5 L Est GFR ( Amer) > 60 Est GFR (Non-Af Amer) > 60 Random Glucose 99 Calcium 8.1 L Phosphorus 3.7 Magnesium 1.8 Total Bilirubin 1.2 AST 35 ALT 27 Alkaline Phosphatase 84 Total Protein 5.9 Albumin 3.0 Globulin 2.8 Albumin/Globulin Ratio 1.1 Venous Blood Potassium Assessment & Plan - Assessment and Plan (Free Text) Assessment: 62 year-old female with PMH of HTN and COPD, depression presents with right 3 day history of b/l anterior thigh swelling/redness (right>left). She is febrile with leukocytosis, admitted for cellulitis. Plan: b/l anterior thigh cellulitis (right >left) -febrile, leukocytosis -continue vancomycin, zosyn -2L IVF bolus given -continue IVF NS@150 cc/hr -blood cx -dilaudid prn for pain -right Lower extremity CT -surgery consult Dr Mendez HTN: -resume home med losartan, HCTZ COPD: -duoneb prn -pulmicort -O2 NC prn Depression: -continue home med amitriptyline, fluoxitine PPX: DVT: SCD GI: not indicated NPO Case reviewed and plan discussed with attending Dr Red Rutledge, DO <Jaciel Moon - Last Filed: 01/10/19 04:19> Results - Vital Signs Recent Vital Signs: Last Vital Signs Temp 98.3 F 01/10/19 02:10 Pulse 74 01/09/19 23:39 Resp 18 01/09/19 23:39 BP 117/62 01/09/19 23:39 Pulse Ox 95 01/09/19 23:39 - Labs Result Diagrams: 01/09/19 23:45 01/09/19 23:45 Labs: Laboratory Results - last 24 hr 01/09/19 01/09/19 01/09/19 23:45 23:45 23:45 WBC 14.5 H RBC 3.75 Hgb 12.0 Hct 34.5 L MCV 92.0 D MCH 32.0 MCHC 34.8 RDW 12.7 Plt Count 345 MPV 9.1 Neut % (Auto) 86.3 H Lymph % (Auto) 6.9 L Cooper % (Auto) 6.6 H Eos % (Auto) 0.1 L Baso % (Auto) 0.1 Lymph # (Auto) 1.0 L Cooper # (Auto) 1.0 H Eos # (Auto) 0.0 Baso # (Auto) 0.02 Absolute Neuts (auto) 12.48 H PT 14.6 H INR 1.32 APTT 29.5 pO2 39 VBG pH 7.46 H VBG pCO2 37.0 L VBG HCO3 26.3 VBG Total CO2 27.4 VBG O2 Sat (Calc) 85.7 H VBG Base Excess 2.5 H VBG Potassium 4.0 Sodium 124.0 L Chloride 90.0 L Glucose 102 Lactate 0.9 FiO2 21.0 Potassium Carbon Dioxide Anion Gap BUN Creatinine Est GFR ( Amer) Est GFR (Non-Af Amer) Random Glucose Calcium Phosphorus Magnesium Total Bilirubin AST ALT Alkaline Phosphatase Total Protein Albumin Globulin Albumin/Globulin Ratio Venous Blood Potassium 4.0 01/09/19 23:45 WBC RBC Hgb Hct MCV MCH MCHC RDW Plt Count MPV Neut % (Auto) Lymph % (Auto) Cooper % (Auto) Eos % (Auto) Baso % (Auto) Lymph # (Auto) Cooper # (Auto) Eos # (Auto) Baso # (Auto) Absolute Neuts (auto) PT INR APTT pO2 VBG pH VBG pCO2 VBG HCO3 VBG Total CO2 VBG O2 Sat (Calc) VBG Base Excess VBG Potassium Sodium 124 L Chloride 90 L Glucose Lactate FiO2 Potassium 4.0 Carbon Dioxide 25 Anion Gap 13 BUN 8 Creatinine 0.5 L Est GFR ( Amer) > 60 Est GFR (Non-Af Amer) > 60 Random Glucose 99 Calcium 8.1 L Phosphorus 3.7 Magnesium 1.8 Total Bilirubin 1.2 AST 35 ALT 27 Alkaline Phosphatase 84 Total Protein 5.9 Albumin 3.0 Globulin 2.8 Albumin/Globulin Ratio 1.1 Venous Blood Potassium Attending/Attestation - Attestation I have personally seen and examined this patient.: Yes I have fully participated in the care of the patient.: Yes I have reviewed all pertinent clinical information: Yes Notes (Text): 01/10/19 04:15 seen and examined. agree with resident X pt. has hyponatremia, possibly 2/2 prozac and Amitriptyline. Will hold both meds, obtain psych consult for alternative meds. Will W/U cause of hyponatremia further by checking plasma osmolality, urinary osm, urine Na, TFT and cortisol. Pt. was bolused 2 L NS and will decrease IVF to 75 cc/hr and recheck serum Na in AM to avoid correction too fast.
[2019-01-10] MEDS ORDERED: Albuterol-Ipratrop 3 mg / 0.5 (3 ml) UD IH PRN (01:19)
[2019-01-10] MEDS ORDERED: Sodium Chloride 0.9% 1,000 ML IV SCH ×3 (01:30→16:00)
[2019-01-10] MEDS ORDERED: Sodium Chloride 0.9% 1,000 ML IV STA (01:44)
[2019-01-10] MEDS: Budesonide 0.5 mg/2 ml Inhal Susp UD IH SCH ×3 (02:00→19:48)
--- NOTE | 2019-01-10 02:08 | CP.PCM.CON ---
<Sanjay Matt D - Last Filed: 01/10/19 02:03> History of Present Illness - History of Present Illness History of Present Illness: SURGERY CONSULT NOTE FOR DR. MALDONADO Reason: Right thigh abscess 63F presents to the ED for right thigh pain. Patient states pain as been increasing since Tuesday. She states she was sewing on Tuesday and accidentally punctured her thigh with the sewing needle. She states since then that area has been increasing in pain with association of erythema and swelling. She admits to subjective fevers and chills. She denies any fluid drainage from that site. She denies chest pain, shortness of breath, abdominal pain, nausea or vomiting. PMH: COPD, Hypertension, Depression PSH: R hip I&D of abscess, Hysterectomy, Left hand cyst removal Social: Tobacco abuse, denies alcohol abuse All: NKDA Past Patient History - Infectious Disease Hx of Infectious Diseases: None - Past Social History Smoking Status: Heavy Smoker > 10 Cigarettes Daily - CARDIAC Hx Hypertension: Yes - PULMONARY Hx Chronic Obstructive Pulmonary Disease (COPD): Yes - MUSCULOSKELETAL/RHEUMATOLOGICAL Other/Comment: Reynaud's disease - PSYCHIATRIC Hx Psychophysiologic Disorder: No Hx Substance Use: No - SURGICAL HISTORY Hx Hysterectomy: Yes Other/Comment: Abscess drainage. Ganglion cyst - ANESTHESIA Hx Anesthesia: Yes Hx Anesthesia Reactions: No Hx Malignant Hyperthermia: No Meds Allergies/Adverse Reactions: Allergies Allergy/AdvReac Type Severity Reaction Status Date / Time No Known Allergies Allergy Verified 08/07/16 00:12 - Medications Medications: Current Medications Albuterol/Ipratropium (Duoneb 3 Mg/0.5 Mg (3 Ml) Ud) 3 ml IH Q2H PRN PRN Reason: Shortness of Breath Amitriptyline HCl (Elavil) 10 mg PO HS ANA Arformoterol Tartrate (Brovana) 15 mcg IH [id number] ANA Budesonide (Pulmicort Respules) 0.5 mg IH [id number] ANA Fluoxetine HCl (Prozac) 20 mg PO DAILY ANA Hydromorphone HCl (Dilaudid) 0.5 mg IVP Q4H PRN PRN Reason: Pain, moderate (4-7) Vancomycin HCl (Vancomycin 1gm) 1 gm in 250 mls @ 133.333 mls/hr IVPB STAT STA; Protocol Stop: 01/10/19 02:40 Last Admin: 01/10/19 01:53 Dose: 133.333 mls/hr Sodium Chloride (Sodium Chloride 0.9%) 1,000 mls @ 150 mls/hr IV .Q6H40M ANA Last Admin: 01/10/19 01:52 Dose: 150 mls/hr Sodium Chloride (Sodium Chloride 0.9%) 1,000 mls @ 999 mls/hr IV .Q1H1M STA Stop: 01/10/19 02:44 Vancomycin HCl (Vancomycin 1gm) 1 gm in 250 mls @ 167 mls/hr IVPB Q12H ANA; Protocol Piperacillin Sod/Tazobactam Sod (Zosyn 3.375 In Ns 100ml) 100 mls @ 25 mls/hr IVPB Q8H ANA; Protocol Stop: 01/10/19 21:59 Physical Exam - Constitutional Appears: Non-toxic, No Acute Distress - Head Exam Head Exam: ATRAUMATIC - Eye Exam Eye Exam: EOMI, PERRL - ENT Exam ENT Exam: Mucous Membranes Moist - Respiratory Exam Respiratory Exam: Clear to Auscultation Bilateral, NORMAL BREATHING PATTERN - Cardiovascular Exam Cardiovascular Exam: REGULAR RHYTHM, +S1, +S2 - GI/Abdominal Exam GI & Abdominal Exam: Soft. absent: Distended, Firm, Guarding, Pulsatile Mass, Rebound, Rigid, Tenderness - Extremities Exam Additional comments: right anterior thigh - 8cm erythema, swollen area, mildly indurated, no active drainage - Neurological Exam Neurological exam: Alert, Oriented x3 - Psychiatric Exam Psychiatric exam: Normal Affect, Normal Mood - Skin Skin Exam: Dry, Intact, Warm Additional comments: right anterior thigh 8cm erythema Results - Vital Signs Recent Vital Signs: Last Vital Signs Temp 98.1 F 01/09/19 23:39 Pulse 74 01/09/19 23:39 Resp 18 01/09/19 23:39 BP 117/62 01/09/19 23:39 Pulse Ox 95 01/09/19 23:39 - Labs Result Diagrams: 01/09/19 23:45 01/09/19 23:45 Labs: Laboratory Results - last 24 hr 01/09/19 01/09/19 01/09/19 23:45 23:45 23:45 WBC 14.5 H RBC 3.75 Hgb 12.0 Hct 34.5 L MCV 92.0 D MCH 32.0 MCHC 34.8 RDW 12.7 Plt Count 345 MPV 9.1 Neut % (Auto) 86.3 H Lymph % (Auto) 6.9 L Barnwell % (Auto) 6.6 H Eos % (Auto) 0.1 L Baso % (Auto) 0.1 Lymph # (Auto) 1.0 L Barnwell # (Auto) 1.0 H Eos # (Auto) 0.0 Baso # (Auto) 0.02 Absolute Neuts (auto) 12.48 H PT 14.6 H INR 1.32 APTT 29.5 pO2 39 VBG pH 7.46 H VBG pCO2 37.0 L VBG HCO3 26.3 VBG Total CO2 27.4 VBG O2 Sat (Calc) 85.7 H VBG Base Excess 2.5 H VBG Potassium 4.0 Sodium 124.0 L Chloride 90.0 L Glucose 102 Lactate 0.9 FiO2 21.0 Potassium Carbon Dioxide Anion Gap BUN Creatinine Est GFR ( Amer) Est GFR (Non-Af Amer) Random Glucose Calcium Phosphorus Magnesium Total Bilirubin AST ALT Alkaline Phosphatase Total Protein Albumin Globulin Albumin/Globulin Ratio Venous Blood Potassium 4.0 01/09/19 23:45 WBC RBC Hgb Hct MCV MCH MCHC RDW Plt Count MPV Neut % (Auto) Lymph % (Auto) Barnwell % (Auto) Eos % (Auto) Baso % (Auto) Lymph # (Auto) Barnwell # (Auto) Eos # (Auto) Baso # (Auto) Absolute Neuts (auto) PT INR APTT pO2 VBG pH VBG pCO2 VBG HCO3 VBG Total CO2 VBG O2 Sat (Calc) VBG Base Excess VBG Potassium Sodium 124 L Chloride 90 L Glucose Lactate FiO2 Potassium 4.0 Carbon Dioxide 25 Anion Gap 13 BUN 8 Creatinine 0.5 L Est GFR ( Amer) > 60 Est GFR (Non-Af Amer) > 60 Random Glucose 99 Calcium 8.1 L Phosphorus 3.7 Magnesium 1.8 Total Bilirubin 1.2 AST 35 ALT 27 Alkaline Phosphatase 84 Total Protein 5.9 Albumin 3.0 Globulin 2.8 Albumin/Globulin Ratio 1.1 Venous Blood Potassium Assessment & Plan - Assessment and Plan (Free Text) Assessment: 63F with right thigh cellulitis possible abscess Plan: - NPO - IVF - Pain control - Broad Spectrum Antibiotics - Right Lower extremity CT evaluate depth of infection, r/o collection - Further recs discuss with Dr. Mariangel Matt, PGY3 <Akin Maldonado - Last Filed: 01/12/19 10:28> Meds - Medications Medications: Current Medications Albuterol/Ipratropium (Duoneb 3 Mg/0.5 Mg (3 Ml) Ud) 3 ml IH Q2H PRN PRN Reason: Shortness of Breath Amlodipine Besylate (Norvasc) 5 mg PO DAILY [facility] Last Admin: 01/12/19 09:53 Dose: 5 mg Arformoterol Tartrate (Brovana) 15 mcg IH [id number] ANA Last Admin: 01/12/19 07:25 Dose: 15 mcg Budesonide (Pulmicort Respules) 0.5 mg IH [id number] ANA Last Admin: 01/12/19 07:28 Dose: 0.5 mg Vancomycin HCl (Vancomycin 1gm) 1 gm in 250 mls @ 167 mls/hr IVPB Q12H ANA; Protocol Last Admin: 01/11/19 23:31 Dose: 167 mls/hr Losartan Potassium (Cozaar) 100 mg PO DAILY [facility] Last Admin: 01/12/19 09:51 Dose: 100 mg Tramadol HCl (Ultram) 25 mg PO Q8 PRN PRN Reason: Pain, moderate (4-7) Last Admin: 01/11/19 09:47 Dose: 25 mg Results - Vital Signs Recent Vital Signs: Last Vital Signs Temp 97.6 F 01/12/19 06:00 Pulse 64 01/12/19 09:53 Resp 18 01/12/19 06:00 BP 129/74 01/12/19 09:53 Pulse Ox 98 01/12/19 06:00 - Labs Result Diagrams: 01/12/19 06:40 01/12/19 06:40 Labs: Laboratory Results - last 24 hr 01/12/19 01/12/19 06:40 06:40 WBC 10.3 RBC 3.89 Hgb 12.2 Hct 35.4 L MCV 91.0 MCH 31.4 MCHC 34.5 RDW 12.6 Plt Count 364 MPV 9.2 Neut % (Auto) 75.8 H Lymph % (Auto) 15.6 L Barnwell % (Auto) 8.1 H Eos % (Auto) 0.2 L Baso % (Auto) 0.3 Lymph # (Auto) 1.6 Barnwell # (Auto) 0.8 H Eos # (Auto) 0.0 Baso # (Auto) 0.03 Absolute Neuts (auto) 7.82 H Sodium 131 L Potassium 3.6 Chloride 96 L Carbon Dioxide 26 Anion Gap 12 BUN 6 L Creatinine 0.5 L Est GFR ( Amer) > 60 Est GFR (Non-Af Amer) > 60 Random Glucose 97 Calcium 8.3 L Total Bilirubin 0.7 AST 39 H ALT 44 Alkaline Phosphatase 83 Total Protein 6.1 Albumin 3.1 Globulin 3.0 Albumin/Globulin Ratio 1.1 Assessment & Plan - Assessment and Plan (Free Text) Plan: All medical record entries made by the resident were at my direction. I have reviewed the chart and agree that the record accurately reflects my personal performance of the history, physical exam, and medical decision making.
[2019-01-10] MEDS ORDERED: Iohexol 350 MG/100 ML VIAL ONE (02:37)
[2019-01-10] MEDS: HYDROmorphone 0.5 mg/0.5 ml ISec IVP PRN ×4 (03:40→20:26)
[2019-01-10] MEDS ORDERED: Pneumococcal 23-Valent Vaccine IM ONE (05:13)
[2019-01-10] MEDS: Arformoterol 15 mcg/2 ml Inh Sol IH SCH ×2 (07:50→19:48)
[2019-01-10 08:26] LABS: ALBUMIN 2.9 g/dL (3.0-4.8); ALT/SGPT 29 U/L (7-56); AST/SGOT 35 U/L (14-36); BLOOD UREA NITROGEN 7 mg/dL (7-21); CALCIUM 8.1 mg/dL (8.4-10.5); GFR NON-AFRICAN AMERICAN > 60
[2019-01-10 08:33] LABS: FREE T4 1.17 ng/dL (0.78-2.19)
[2019-01-10 09:17] LABS: BARBITURATES, UR NEGATIVE (NEGATIVE); BENZODIAZEPINES, UR NEGATIVE (NEGATIVE); OPIATES, UR POSITIVE (NEGATIVE); PHENCYCLIDINE, UR NEGATIVE (NEGATIVE)
[2019-01-10] MEDS: Piperacillin/Tazobact 3.375 gm 100 ML IVPB SCH ×2 (09:46→17:18)
[2019-01-10 10:00] LABS: OSMOLALITY,URINE 286 mosm/kg (300-1000)
--- NOTE | 2019-01-10 10:17 | RAD ---
Date of service: 01/09/2019 HISTORY: Sepsis Patient COMPARISON: 10/20/2017 TECHNIQUE: 1 view obtained. FINDINGS: LUNGS: No active pulmonary disease. PLEURA: No significant pleural effusion identified, no pneumothorax apparent. CARDIOVASCULAR: Aortic calcification Normal cardiac size. No pulmonary vascular congestion. OSSEOUS STRUCTURES: No significant abnormalities. VISUALIZED UPPER ABDOMEN: Normal. OTHER FINDINGS: None. IMPRESSION: No active disease.
--- NOTE | 2019-01-10 10:49 | CARD ---
APPROVED REPORT Date of service: 01/10/2019 EKG Measurement Heart [id number] <Conclusion> Normal sinus rhythm Possible Left atrial enlargement Borderline ECG
--- NOTE | 2019-01-10 10:51 | CT ---
Date of service: 01/10/2019 PROCEDURE: CT of the right thigh with contrast HISTORY: right thigh abcess COMPARISON: TECHNIQUE: Radiation dose: Total exam DLP = 337.4 mGy-cm. This CT exam was performed using one or more of the following dose reduction techniques: Automated exposure control, adjustment of the mA and/or kV according to patient size, and/or use of iterative reconstruction technique. 100 cc of Omni 350 FINDINGS: Severe inflammatory changes with subcutaneous edema and abscess formation can be seen in the anterior thigh. There are 2 separate collections the more superior located collection measures 3.1 x 2.7 cm. More inferiorly the abscess measures 5.2 x 6.1 cm. There is also muscular edema. Gas densities are seen within the subcutaneous tissues consistent with a gas-forming infection. Alternatively this could be due to recent intervention. Some gas densities are also seen in the medial left upper thigh. There are no bony abnormalities. The report concurs with the preliminary [facility] report IMPRESSION: Inflammatory changes and abscess formation anterior thigh. See comments
--- NOTE | 2019-01-10 11:12 | CP.PCM.APN ---
Subjective - Date & Time of Evaluation Date of Evaluation: 01/10/19 Time of Evaluation: 11:00 - Subjective Subjective: Pt seen and examined at bedside. C/O pain on R thigh. R anterior thigh is red, swollen and warm to touch. Objective - Vital Signs/Intake and Output Vital Signs (last 24 hours): Temp Pulse Resp BP Pulse Ox 98 F 64 18 128/82 98 01/10/19 06:00 01/10/19 09:48 01/10/19 06:00 01/10/19 06:00 01/10/19 06:00 Intake and Output: 01/10/19 01/10/19 06:59 18:59 Intake Total 0 Balance 0 - Medications Medications: Current Medications Albuterol/Ipratropium (Duoneb 3 Mg/0.5 Mg (3 Ml) Ud) 3 ml IH Q2H PRN PRN Reason: Shortness of Breath Arformoterol Tartrate (Brovana) 15 mcg IH [id number] ANA Last Admin: 01/10/19 07:50 Dose: 15 mcg Budesonide (Pulmicort Respules) 0.5 mg IH [id number] ANA Last Admin: 01/10/19 07:50 Dose: 0.5 mg Hydromorphone HCl (Dilaudid) 0.5 mg IVP Q4H PRN PRN Reason: Pain, moderate (4-7) Last Admin: 01/10/19 08:39 Dose: 0.5 mg Vancomycin HCl (Vancomycin 1gm) 1 gm in 250 mls @ 167 mls/hr IVPB Q12H ANA; Protocol Piperacillin Sod/Tazobactam Sod (Zosyn 3.375 In Ns 100ml) 100 mls @ 25 mls/hr IVPB Q8H ANA; Protocol Stop: 01/10/19 21:59 Last Admin: 01/10/19 09:46 Dose: 25 mls/hr - Labs Labs: 01/09/19 23:45 01/10/19 07:30 PT 14.6 SECONDS (9.4-12.5) H 01/09/19 23:45 INR 1.32 01/09/19 23:45 APTT 29.5 Seconds (26.9-38.3) 01/09/19 23:45 - Constitutional Appears: No Acute Distress - Respiratory Exam Respiratory Exam: Clear to Ausculation Bilateral, NORMAL BREATHING PATTERN - Cardiovascular Exam Cardiovascular Exam: REGULAR RHYTHM, +S1, +S2 - GI/Abdominal Exam GI & Abdominal Exam: Soft, Normal Bowel Sounds - Extremities Exam Additional comments: R anterior thigh warm to touch, reddened and swollen. - Neurological Exam Neurological Exam: Alert, Awake, Oriented x3 Assessment and Plan - Assessment and Plan (Free Text) Assessment: Pt is a 63 y.o. female with pmhx of HTN, COPD, and hysterectomy who presented in ED due to swelling and redness to her R thigh. Per pt, she accidentally stuck it w/ needle while sewing. She c/o of subjective fever at home. Impressions Chest X-Ray 01/09/19 23:39 IMPRESSION: No active disease. Lower Extremity CT 01/10/19 02:21 IMPRESSION: Inflammatory changes and abscess formation anterior thigh. See comments Plan: On Vanco/Zosyn IV Surgery on consult - ?drainage of abscess Blood cx pending Meds per MAR Will continue to follow
[2019-01-10] MEDS: Vancomycin 1gm in NS 250ml 1 GM/250 ML BAG IVPB SCH (14:44)
[2019-01-10] MEDS ORDERED: Propofol 10 mg/ml Inj (20 ML) ONE (15:15)
[2019-01-10] MEDS ORDERED: Midazolam 2 MG/2 ML VIAL ONE (15:16)
[2019-01-10] MEDS ORDERED: HYDROmorphone 0.5 mg/0.5 ml ISec IVP PRN (15:51)
--- NOTE | 2019-01-10 15:54 | PCM.SURG1 ---
Surgeon's Initial Post Op Note - Surgeon's Notes Surgeon: Dr. Madrigal Crisis Therapist: Dr. Finch PGY3 Type of Anesthesia: General LMA Pre-Operative Diagnosis: right thigh abscess Operative Findings: see dictation Post-Operative Diagnosis: same Operation Performed: incision and drainage of right thigh abscess Specimen/Specimens Removed: right thigh fluid culture Estimated Blood Loss: EBL {In ML}: 5 Blood Products Given: N/A Drains Used: Zach (09/15") Post-Op Condition: Good Date of Surgery/Procedure: 01/10/19 Time of Surgery/Procedure: 15:53
[2019-01-10] MEDS ORDERED: HYDROmorphone 0.5 mg/0.5 ml ISec ONE (16:29)
[2019-01-11] MEDS: Vancomycin 1gm in NS 250ml 1 GM/250 ML BAG IVPB SCH ×3 (00:47→23:31)
[2019-01-11] MEDS: HYDROmorphone 0.5 mg/0.5 ml ISec IVP PRN ×2 (00:47→06:51)
[2019-01-11] MEDS ORDERED: HYDROmorphone 0.5 mg/0.5 ml ISec IVP STA (03:48)
[2019-01-11 06:56] LABS: BASO # 0.02 K/mm3 (0.0-2.0); BASO % 0.2 % (0.0-3.0); EOS % 0.1 % (1.5-5.0); HEMOGLOBIN 11.2 g/dL (12.0-16.0); LYMPH # 1.4 (1.2-3.4); LYMPH % 13.7 % (22.0-35.0); MEAN CELL VOLUME 90.9 fl (80.0-105.0); MEAN CORPUSCULAR HGB CONC 34.1 g/dl (31.0-37.0); MEAN PLATELET VOLUME 9.2 fl (7.0-11.0); MONO # 0.7 (0.1-0.6); RBC 3.61 10^6/uL (3.5-6.1); RED CELL DISTRIBUTION WIDTH 12.6 % (11.5-14.5); WHITE BLOOD COUNT 9.9 10^3/uL (4.5-11.0)
[2019-01-11] MEDS: Arformoterol 15 mcg/2 ml Inh Sol IH SCH ×2 (07:21→19:38)
[2019-01-11] MEDS: Budesonide 0.5 mg/2 ml Inhal Susp UD IH SCH ×2 (07:21→19:38)
[2019-01-11 07:24] LABS: ALBUMIN 2.8 g/dL (3.0-4.8); ALT/SGPT 33 U/L (7-56); AST/SGOT 34 U/L (14-36); BLOOD UREA NITROGEN 8 mg/dL (7-21); CALCIUM 8.1 mg/dL (8.4-10.5); GFR NON-AFRICAN AMERICAN > 60
--- NOTE | 2019-01-11 07:56 | CP.PCM.PN ---
Subjective - Date & Time of Evaluation Date of Evaluation: 01/11/19 Time of Evaluation: 07:49 - Subjective Subjective: PGY1 General surgery progress note for Dr. Madrigal Pt seen and examined at bedside. Pt is resting comfortably. Pt reports that the incision site is sore, but her pain is much improved overall. Denies fever, chills, chest pain, sob, abdominal pain, increased pain to the incision site, drainage or bleeding from the incision site. Objective - Vital Signs/Intake and Output Vital Signs (last 24 hours): Temp Pulse Resp BP Pulse Ox 98.0 F 59 L 18 132/68 98 01/11/19 06:00 01/11/19 06:00 01/11/19 06:00 01/11/19 06:00 01/11/19 06:00 Intake and Output: 01/11/19 01/11/19 06:59 18:59 Intake Total 600 Balance 600 - Medications Medications: Current Medications Albuterol/Ipratropium (Duoneb 3 Mg/0.5 Mg (3 Ml) Ud) 3 ml IH Q2H PRN PRN Reason: Shortness of Breath Arformoterol Tartrate (Brovana) 15 mcg IH [id number] ANA Last Admin: 01/11/19 07:21 Dose: 15 mcg Budesonide (Pulmicort Respules) 0.5 mg IH [id number] ANA Last Admin: 01/11/19 07:21 Dose: 0.5 mg Hydromorphone HCl (Dilaudid) 0.5 mg IVP Q4H PRN PRN Reason: Pain, moderate (4-7) Last Admin: 01/11/19 06:51 Dose: 0.5 mg Vancomycin HCl (Vancomycin 1gm) 1 gm in 250 mls @ 167 mls/hr IVPB Q12H ANA; Protocol Last Admin: 01/11/19 00:47 Dose: 167 mls/hr Tramadol HCl (Ultram) 25 mg PO Q8 PRN PRN Reason: Pain, moderate (4-7) Last Admin: 01/10/19 23:55 Dose: 25 mg - Labs Labs: 01/11/19 06:30 01/11/19 06:30 PT 14.6 SECONDS (9.4-12.5) H 01/09/19 23:45 INR 1.32 01/09/19 23:45 APTT 29.5 Seconds (26.9-38.3) 01/09/19 23:45 - Constitutional Appears: Non-toxic, No Acute Distress - Head Exam Head Exam: ATRAUMATIC, NORMAL INSPECTION - Eye Exam Eye Exam: EOMI - ENT Exam ENT Exam: Mucous Membranes Moist - Respiratory Exam Respiratory Exam: Clear to Ausculation Bilateral, NORMAL BREATHING PATTERN - Cardiovascular Exam Cardiovascular Exam: REGULAR RHYTHM, +S1, +S2 - GI/Abdominal Exam GI & Abdominal Exam: Soft, Normal Bowel Sounds. absent: Tenderness - Extremities Exam Extremities Exam: Normal Capillary Refill. absent: Calf Tenderness, Joint Sw elling, Pedal Edema Additional comments: (+) right anterior thigh incision with saadia drain in place; serosanguinous material with moderate purulent material expressed; minimal surrounding erythema and swelling; minimal tenderness - Neurological Exam Neurological Exam: Alert, Awake - Psychiatric Exam Psychiatric exam: Normal Affect, Normal Mood - Skin Skin Exam: Dry, Normal Color, Warm Assessment and Plan - Assessment and Plan (Free Text) Assessment: This is a 63 year old female with PMH of COPD, Hypertension, Depression presents with right thigh pain. CT noted right anterior thigh abscess. I and D in the OR 01/10/19. Plan: Right anterior thigh abscess S/p OR incision and drainage, POD#[address] shows inflammatory changes and abscess formation of right anterior thigh. Pain well controlled Abx as per primary team Saadia in place, dressing changed today Well healing Further recommendations as per Dr. Rohan Perkins PGY1
[2019-01-11] MEDS ORDERED: HYDROmorphone 0.5 mg/0.5 ml ISec IVP PRN (08:54)
--- NOTE | 2019-01-11 10:48 | CP.PCM.PCO ---
Additional Comments - Additional Comments Additional Comments: Pt seen and examined at bedside. In no acute distress. Pt is s/p I&D of R anterior thigh yesterday w/ saadia drain, dressing is c/d/i. Pending OR culture. Currently on IV Vancomycin. Blood cx is negative x24hrs. Will continue to follow.
[2019-01-11] MEDS: Morphine 2 mg/ml ISec IVP PRN ×3 (11:17→23:31)
--- NOTE | 2019-01-11 12:03 | CP.PCM.PN ---
<Yogi Rivera - Last Filed: 01/11/19 11:59> Subjective - Date & Time of Evaluation Date of Evaluation: 01/11/19 Time of Evaluation: 12:00 - Subjective Subjective: Medicine Progress Note for Dr. Mcneal Patient seen and examined at bedside. No acute overnight events. Patient reports pain at surgery site, but controlled with medication. Patient denied CP, SOB, n/v/d, abdominal pain, fever, chills, [place], or dizziness. Objective - Vital Signs/Intake and Output Vital Signs (last 24 hours): Temp Pulse Resp BP Pulse Ox 98.0 F 59 L 18 132/68 98 01/11/19 06:00 01/11/19 06:00 01/11/19 06:00 01/11/19 06:00 01/11/19 06:00 Intake and Output: 01/11/19 01/11/19 06:59 18:59 Intake Total 600 Balance 600 - Medications Medications: Current Medications Albuterol/Ipratropium (Duoneb 3 Mg/0.5 Mg (3 Ml) Ud) 3 ml IH Q2H PRN PRN Reason: Shortness of Breath Arformoterol Tartrate (Brovana) 15 mcg IH [id number] ANA Last Admin: 01/11/19 07:21 Dose: 15 mcg Budesonide (Pulmicort Respules) 0.5 mg IH [id number] ANA Last Admin: 01/11/19 07:21 Dose: 0.5 mg Vancomycin HCl (Vancomycin 1gm) 1 gm in 250 mls @ 167 mls/hr IVPB Q12H ANA; Protocol Last Admin: 01/11/19 11:17 Dose: 167 mls/hr Morphine Sulfate (Morphine) 2 mg IVP Q6H PRN PRN Reason: Pain, severe (8-10) Last Admin: 01/11/19 11:17 Dose: 2 mg Tramadol HCl (Ultram) 25 mg PO Q8 PRN PRN Reason: Pain, moderate (4-7) Last Admin: 01/11/19 09:47 Dose: 25 mg - Labs Labs: 01/11/19 06:30 01/11/19 06:30 PT 14.6 SECONDS (9.4-12.5) H 01/09/19 23:45 INR 1.32 01/09/19 23:45 APTT 29.5 Seconds (26.9-38.3) 01/09/19 23:45 - Constitutional Appears: No Acute Distress - Head Exam Head Exam: NORMAL INSPECTION - Eye Exam Eye Exam: Normal appearance, PERRL - ENT Exam ENT Exam: Mucous Membranes Moist - Neck Exam Neck Exam: Normal Inspection - Respiratory Exam Respiratory Exam: Clear to Ausculation Bilateral. absent: Rales, Rhonchi, Whe ezes - Cardiovascular Exam Cardiovascular Exam: RRR. absent: Diastolic murmur, Gallop, Rubs, Murmur - GI/Abdominal Exam GI & Abdominal Exam: Soft. absent: Distended, Guarding, Tenderness, Rebound - Extremities Exam Additional comments: dressings c/d/i on right thigh - Neurological Exam Neurological Exam: Alert, Awake, Oriented x3 - Psychiatric Exam Psychiatric exam: Normal Affect, Normal Mood - Skin Skin Exam: Normal Color, Warm Assessment and Plan - Assessment and Plan (Free Text) Assessment: 62 year-old female with PMH of HTN and COPD, depression presents with right 3 day history of b/l anterior thigh swelling/redness (right>left). She is febrile with leukocytosis, admitted for cellulitis. Plan: B/L anterior thigh cellulitis (right >left) - S/P I&D POD1 - CT of RLE showed abscess in right thigh, 2 collections 3.1x2.7 cm and 5.2x6.1 cm - Blood cultures negative after 24 hours - Wound culture pending - Continue Vancomycin - Tramadol and Morphine prn for pain - Surgery consulted Hyponatremia - Hypotonic, euvolemic - Serum and Urine osm dilute, Low urine Na; consistent with polydipsia - Fluid restriction - Hold HCTZ HTN - Cont Home med: Norvasc and Losartan - Hold HCTZ due to hyponatremia COPD - duoneb prn - pulmicort PPX: DVT: SCD GI: not indicated Patient seen and discussed in detail with Dr. Mcneal. Sam Rivera, PGY2 <Marilin Mcneal - Last Filed: 01/12/19 15:15> Objective - Vital Signs/Intake and Output Vital Signs (last 24 hours): Temp Pulse Resp BP Pulse Ox 97.6 F 64 18 129/74 98 01/12/19 06:00 01/12/19 09:53 01/12/19 06:00 01/12/19 09:53 01/12/19 06:00 Intake and Output: 01/12/19 01/12/19 06:59 18:59 Intake Total 420 Balance 420 - Labs Labs: 01/12/19 06:40 01/12/19 06:40 PT 14.6 SECONDS (9.4-12.5) H 01/09/19 23:45 INR 1.32 01/09/19 23:45 APTT 29.5 Seconds (26.9-38.3) 01/09/19 23:45 Attending/Attestation - Attestation I have personally seen and examined this patient.: Yes I have fully participated in the care of the patient.: Yes I have reviewed all pertinent clinical information, including history, physical exam and plan: Yes Notes (Text): 01/12/19 15:15 Medical record note made by the resident after discussion with my direction and input after the patient was personally seen and examined by me. I have reviewed the chart and agree that the record accurately reflects by personal performance of the history, physical exam, data review, and medical decision-making, in the course for the patient. I have also personally directed the plan of care.
--- NOTE | 2019-01-12 04:31 | OP ---
PROCEDURE DATE: 01/10/2019 SURGEON: Gilson Madrigal MD SERVICES ADVISOR: Ayesha Finch DO, PGY-3. PROCEDURE: Incision and drainage of right thigh abscess. PREOPERATIVE DIAGNOSIS: Right thigh abscess. POSTOPERATIVE DIAGNOSIS: Right thigh abscess. SPECIMENS: Wound culture. DESCRIPTION OF PROCEDURE: After consent was obtained, the patient was taken to the operating room and placed on an operating table. The patient underwent general LMA anesthesia and was then prepped and draped in the usual sterile fashion. A time-out was performed confirming correct patient, side, placement, and procedure. The patient's thigh was then palpated for the maximum area of fluctuance, over which a 1 cm incision was made using a 15 blade. The incision was carried down through the subcutaneous fat until the abscess pocket was encountered above the fascia. A culture was taken of the purulent fluid. The cavity was then explored using a Kat clamp. The cavity was noted to travel laterally roughly 3-4cm. However, it only tracked about 1 to 2 cm cephalad, caudad, and medially. The cavity was then flushed with sterile irrigation, at which point, a Zach drain was placed into the abscess cavity and cut to size. Pressure was applied to the incision to obtain hemostasis. Once hemostasis was achieved, the area was cleaned, and a sterile dressing of 4x4s and 3M tape was was applied. The patient tolerated the procedure well, was extubated in the OR, and taken to PACU in stable condition. Ayesha Finch DO Gilson Madrigal MD RUPERTO
[2019-01-12] MEDS: Morphine 2 mg/ml ISec IVP PRN (05:22)
[2019-01-12 07:12] LABS: BASO # 0.03 K/mm3 (0.0-2.0); BASO % 0.3 % (0.0-3.0); EOS % 0.2 % (1.5-5.0); HEMOGLOBIN 12.2 g/dL (12.0-16.0); LYMPH # 1.6 (1.2-3.4); LYMPH % 15.6 % (22.0-35.0); MEAN CORPUSCULAR HEMOGLOBIN 31.4 pg (25.0-35.0); MEAN CORPUSCULAR HGB CONC 34.5 g/dl (31.0-37.0); MEAN PLATELET VOLUME 9.2 fl (7.0-11.0); MONO # 0.8 (0.1-0.6); MONO % 8.1 % (1.0-6.0); RBC 3.89 10^6/uL (3.5-6.1); RED CELL DISTRIBUTION WIDTH 12.6 % (11.5-14.5); WHITE BLOOD COUNT 10.3 10^3/uL (4.5-11.0)
[2019-01-12 07:19] LABS: ALB/GLOB RATIO 1.1 (1.1-1.8); ALBUMIN 3.1 g/dL (3.0-4.8); ALT/SGPT 44 U/L (7-56); AST/SGOT 39 U/L (14-36); BLOOD UREA NITROGEN 6 mg/dL (7-21); CALCIUM 8.3 mg/dL (8.4-10.5); GFR NON-AFRICAN AMERICAN > 60
[2019-01-12] MEDS: Arformoterol 15 mcg/2 ml Inh Sol IH SCH (07:25)
[2019-01-12] MEDS: Budesonide 0.5 mg/2 ml Inhal Susp UD IH SCH (07:28)
[2019-01-12 08:14] VITALS: RESP 18; TEMP 97.6; O2SAT 98
--- NOTE | 2019-01-12 08:21 | CP.PCM.PN ---
Subjective - Date & Time of Evaluation Date of Evaluation: 01/12/19 Time of Evaluation: 09:22 - Subjective Subjective: PGY1 General surgery progress note for Dr. Madrigal Pt seen and examined at bedside. Pt is resting comfortably. Continues to report improvement of pain, although has some lingering soreness in the area. Denies fever, chills, chest pain, sob, abdominal pain, increased pain to the incision site, drainage or bleeding from the incision site. Objective - Vital Signs/Intake and Output Vital Signs (last 24 hours): Temp Pulse Resp BP Pulse Ox 97.6 F 58 L 18 154/84 H 98 01/12/19 06:00 01/12/19 06:00 01/12/19 06:00 01/12/19 06:00 01/12/19 06:00 Intake and Output: 01/12/19 01/12/19 06:59 18:59 Intake Total 420 Balance 420 - Medications Medications: Current Medications Albuterol/Ipratropium (Duoneb 3 Mg/0.5 Mg (3 Ml) Ud) 3 ml IH Q2H PRN PRN Reason: Shortness of Breath Amlodipine Besylate (Norvasc) 5 mg PO DAILY [facility] Last Admin: 01/11/19 17:25 Dose: 5 mg Arformoterol Tartrate (Brovana) 15 mcg IH [id number] ANA Last Admin: 01/12/19 07:25 Dose: 15 mcg Budesonide (Pulmicort Respules) 0.5 mg IH [id number] ANA Last Admin: 01/12/19 07:28 Dose: 0.5 mg Vancomycin HCl (Vancomycin 1gm) 1 gm in 250 mls @ 167 mls/hr IVPB Q12H ANA; Protocol Last Admin: 01/11/19 23:31 Dose: 167 mls/hr Losartan Potassium (Cozaar) 100 mg PO DAILY [facility] Morphine Sulfate (Morphine) 2 mg IVP Q6H PRN PRN Reason: Pain, severe (8-10) Last Admin: 01/12/19 05:22 Dose: 2 mg Tramadol HCl (Ultram) 25 mg PO Q8 PRN PRN Reason: Pain, moderate (4-7) Last Admin: 01/11/19 09:47 Dose: 25 mg - Labs Labs: 01/12/19 06:40 01/12/19 06:40 PT 14.6 SECONDS (9.4-12.5) H 01/09/19 23:45 INR 1.32 01/09/19 23:45 APTT 29.5 Seconds (26.9-38.3) 01/09/19 23:45 - Constitutional Appears: Non-toxic, No Acute Distress - Head Exam Head Exam: ATRAUMATIC, NORMAL INSPECTION - Eye Exam Eye Exam: EOMI - Respiratory Exam Respiratory Exam: Clear to Ausculation Bilateral. absent: Rales, Rhonchi, Wheezes, Respiratory Distress, Stridor - Cardiovascular Exam Cardiovascular Exam: REGULAR RHYTHM, +S1, +S2. absent: Tachycardia - GI/Abdominal Exam GI & Abdominal Exam: Soft, Normal Bowel Sounds - Extremities Exam Extremities Exam: Full ROM, Normal Capillary Refill. absent: Calf Tenderness, Normal Inspection, Pedal Edema Additional comments: (+) right anterior thigh incision covered with dressing with saadia drain in place; serosanguinous material only; no surrounding erythema and swelling; minimal tenderness - Psychiatric Exam Psychiatric exam: Normal Affect, Normal Mood - Skin Skin Exam: Dry, Normal Color, Warm Assessment and Plan - Assessment and Plan (Free Text) Assessment: This is a 63 year old female with PMH of COPD, Hypertension, Depression presents with right thigh pain. CT noted right anterior thigh abscess. I and D in the OR 01/10/19. Plan: Right anterior thigh abscess S/p OR incision and drainage, POD#[address] showed inflammatory changes and abscess formation of right anterior thigh. Pain well controlled Saadia removed at bedside (well tolerated), dressing applied Area is healing appropriately; no need for antibiotics on discharge Pt provided with dressing to change if needed; pt can shower F/u with Dr. Madrigal at [facility] surgical clinic in 1 week; call to make appointment. Further recommendations as per Dr. Rohan Perkins PGY1
[2019-01-12] MEDS ORDERED: Potassium Chloride 20 mEq ER Tab PO STA (09:02)
[2019-01-12 09:53] VITALS: BP 129/74; PULSE 64
[2019-01-12] MEDS: Vancomycin 1gm in NS 250ml 1 GM/250 ML BAG IVPB SCH (11:05)
--- NOTE | 2019-01-12 12:46 | CP.PCM.DIS ---
<Gavin Murrell - Last Filed: 01/12/19 12:34> Provider - Provider Date of Admission: 01/10/19 00:50 Attending physician: Marilin Mcneal MD Primary care physician: Randa Ann MD Consults: 01/10/19 02:23 General Surgery Consult Stat Comment: Consulting Provider: Akin Chong Consulting Physician: Akin Chong Reason for Consult: right thigh abcess 01/10/19 05:13 Inpatient CAFETERIA OPERATOR Core Measures Referral Routine Comment: Physician Instructions: Reason For Exam: met criteria Transition In Care/Readmission Reduction Routine Comment: Physician Instructions: Reason For Exam: met criteria 01/10/19 05:17 Nursing Referral for Wound Care Routine Comment: Physician Instructions: Reason For Exam: met criteria Time Spent in preparation of Discharge (in minutes): 35 Hospital Course - Lab Results Lab Results: Micro Results 01/10/19 00:10 Blood Blood Culture - Preliminary NO GROWTH AFTER 48 HOURS 01/09/19 23:45 Blood Blood Culture - Preliminary NO GROWTH AFTER 48 HOURS 01/10/19 15:59 Abscess - Abscess Gram Stain - Final Most Recent Lab Values WBC 10.3 10^3/uL (4.5-11.0) 01/12/19 06:40 RBC 3.89 10^6/uL (3.5-6.1) 01/12/19 06:40 Hgb 12.2 g/dL (12.0-16.0) 01/12/19 06:40 Hct 35.4 % (36.0-48.0) L 01/12/19 06:40 MCV 91.0 fl (80.0-105.0) 01/12/19 06:40 MCH 31.4 pg (25.0-35.0) 01/12/19 06:40 MCHC 34.5 g/dl (31.0-37.0) 01/12/19 06:40 RDW 12.6 % (11.5-14.5) 01/12/19 06:40 Plt Count 364 10^3/uL (120.0-450.0) 01/12/19 06:40 MPV 9.2 fl (7.0-11.0) 01/12/19 06:40 Neut % (Auto) 75.8 % (50.0-68.0) H 01/12/19 06:40 Lymph % (Auto) 15.6 % (22.0-35.0) L 01/12/19 06:40 [place] % (Auto) 8.1 % (1.0-6.0) H 01/12/19 06:40 Eos % (Auto) 0.2 % (1.5-5.0) L 01/12/19 06:40 Baso % (Auto) 0.3 % (0.0-3.0) 01/12/19 06:40 Lymph # (Auto) 1.6 (1.2-3.4) 01/12/19 06:40 [place] # (Auto) 0.8 (0.1-0.6) H 01/12/19 06:40 Eos # (Auto) 0.0 (0.0-0.7) 01/12/19 06:40 Baso # (Auto) 0.03 K/mm3 (0.0-2.0) 01/12/19 06:40 Absolute Neuts (auto) 7.82 (1.4-6.5) H 01/12/19 06:40 PT 14.6 SECONDS (9.4-12.5) H 01/09/19 23:45 INR 1.32 01/09/19 23:45 APTT 29.5 Seconds (26.9-38.3) 01/09/19 23:45 pO2 39 mm/Hg (30-55) 01/09/19 23:45 VBG pH 7.46 (7.32-7.43) H 01/09/19 23:45 VBG pCO2 37.0 (40-60) L 01/09/19 23:45 VBG HCO3 26.3 mmol/l (21-28) 01/09/19 23:45 VBG Total CO2 27.4 mmol.L (22-28) 01/09/19 23:45 VBG O2 Sat (Calc) 85.7 % (40-65) H 01/09/19 23:45 VBG Base Excess 2.5 mmol/L (0.0-2.0) H 01/09/19 23:45 VBG Potassium 4.0 mmol/L (3.6-5.2) 01/09/19 23:45 Sodium 124.0 mmol/L (132-148) L 01/09/19 23:45 Chloride 90.0 mmol/L (98-107) L 01/09/19 23:45 Glucose 102 mg/dl (65-105) 01/09/19 23:45 Lactate 0.9 mmol/L (0.7-2.1) 01/09/19 23:45 FiO2 21.0 % 01/09/19 23:45 Sodium 131 mmol/L (132-148) L 01/12/19 06:40 Potassium 3.6 mmol/L (3.6-5.0) 01/12/19 06:40 Chloride 96 mmol/L (98-107) L 01/12/19 06:40 Carbon Dioxide 26 mmol/L (21-33) 01/12/19 06:40 Anion Gap 12 (10-20) 01/12/19 06:40 BUN 6 mg/dL (7-21) L 01/12/19 06:40 Creatinine 0.5 mg/dl (0.7-1.2) L 01/12/19 06:40 Est GFR ( Amer) > 60 01/12/19 06:40 Est GFR (Non-Af Amer) > 60 01/12/19 06:40 Random Glucose 97 mg/dL (70-110) 01/12/19 06:40 Serum Osmolality 263 mosm/kg (272-300) L 01/10/19 07:30 Calcium 8.3 mg/dL (8.4-10.5) L 01/12/19 06:40 Phosphorus 4.7 mg/dL (2.5-4.5) H 01/10/19 07:30 Magnesium 1.9 mg/dL (1.7-2.2) 01/10/19 07:30 Total Bilirubin 0.7 mg/dL (0.2-1.3) 01/12/19 06:40 AST 39 U/L (14-36) H 01/12/19 06:40 ALT 44 U/L (7-56) 01/12/19 06:40 Alkaline Phosphatase 83 U/L (38-126) 01/12/19 06:40 Total Protein 6.1 g/dL (5.8-8.3) 01/12/19 06:40 Albumin 3.1 g/dL (3.0-4.8) 01/12/19 06:40 Globulin 3.0 gm/dL 01/12/19 06:40 Albumin/Globulin Ratio 1.1 (1.1-1.8) 01/12/19 06:40 Free T4 1.17 ng/dL (0.78-2.19) 01/10/19 07:30 TSH 3rd Generation 0.84 mIU/mL (0.46-4.68) 01/10/19 07:30 Cortisol AM Sample 43.3 ug/dL (4.46-22.7) H 01/10/19 07:30 Venous Blood Potassium 4.0 mmol/L (3.6-5.2) 01/09/19 23:45 Urine Osmolality 286 mosm/kg (300-1000) L 01/10/19 08:00 Ur Random Sodium 16 meq/L 01/10/19 08:00 Urine Opiates Screen Positive (NEGATIVE) H 01/10/19 08:00 Urine Methadone Screen Negative (NEGATIVE) 01/10/19 08:00 Ur Barbiturates Screen Negative (NEGATIVE) 01/10/19 08:00 Ur Phencyclidine Scrn Negative (NEGATIVE) 01/10/19 08:00 Ur Amphetamines Screen Negative (NEGATIVE) 01/10/19 08:00 U Benzodiazepines Scrn Negative (NEGATIVE) 01/10/19 08:00 U Oth Cocaine Metabols Negative (NEGATIVE) 01/10/19 08:00 U Cannabinoids Screen Negative (NEGATIVE) 01/10/19 08:00 - Hospital Course Hospital Course: Gavin Murrell, PGY-1 Discharge Summary for Hospitalist Service 63 year-old female with PMH of HTN and COPD, depression presented with 3 day history of b/l anterior thigh swelling/redness. She presented febrile with leukocytosis, and subsequently admitted for cellulitis. Lower extremity CT showed inflammatory changes and abscess formation of right anterior thigh. Surgery was consulted - Dr. Chong. Patient was given IV ABX, NPO, and pain control with Tramadol and Morphine. Blood cultures were drawn. Next day, OR incision and drainage were performed by surgical team. Wound cultures were drawn and saadia drain placed along with dressing applied. Pain was well controlled. Patient was found to be hyponatremic, which patient reports she is chronically. Patient was fluid restricted and home HCTZ was held. Serum and Urine osm were dilute with Low urine Na, consistent with likely polydipsia. For patient HTN, patient was continued on Norvasc and Losartan. Patient was provided with dressing change and was told patient can safely shower on discharge on POD #2. Patient was provided short course of Doxycycline upon discharge. Instructions upon discharge included: Please take your antibiotic Doxycycline and two anti-hypertension medications as prescribed. Please do not take your hydrochlorothiazide. Please see Dr. Ann within 1 week. Please follow up with Dr. Madrigal at [facility] surgical clinic in 1 week; call to make appointment. Should symptoms worsen, please visit nearest emergency department. Patient was in agreement with discharge plan and pain was controlled. Patient tolerating diet. Follow up questions were answered in detail and to patient satisfaction. For full details of hospital course, please refer to EMR. Patient seen, case reviewed and plan approved by Dr. Mcneal. Discharge Exam - Additional Findings Additional findings: - Constitutional Appears: No Acute Distress - Head Exam Head Exam: NORMAL INSPECTION - Eye Exam Eye Exam: Normal appearance, PERRL - ENT Exam ENT Exam: Mucous Membranes Moist - Neck Exam Neck Exam: Normal Inspection - Respiratory Exam Respiratory Exam: Clear to Ausculation Bilateral. absent: Rales, Rhonchi, Wheezes - Cardiovascular Exam Cardiovascular Exam: RRR. absent: Diastolic murmur, Gallop, Rubs, Murmur - GI/Abdominal Exam GI & Abdominal Exam: Soft. absent: Distended, Guarding, Tenderness, Rebound - Extremities Exam Additional comments: dressings c/d/i on right thigh, saadia drain removed - Neurological Exam Neurological Exam: Alert, Awake, Oriented x3 - Psychiatric Exam Psychiatric exam: Normal Affect, Normal Mood - Skin Skin Exam: Normal Color, Warm Discharge Plan - Discharge Medications Prescriptions: amLODIPine [Norvasc] 5 mg PO DAILY #14 tab Doxycycline Hyclate 100 mg PO Q12H #14 capsule Losartan [Cozaar] 100 mg PO DAILY #15 tab - Follow Up Plan Condition: STABLE Disposition: HOME/ ROUTINE Instructions: Wound Care (DC), Cellulitis (DC), Cellulitis (GEN) Additional Instructions: Please take your antibiotic Doxycycline and two anti-hypertension medications as prescribed. Please do not take your hydrochlorothiazide. Please see Dr. Ann within 1 week. Please follow up with Dr. Madrigal at [facility] surgical clinic in 1 week; call to make appointment. Should symptoms worsen, please visit nearest emergency department. Referrals: [facility] at [facility] [Outside] [facility] [place] [Outside] Randa Diaz MD [Primary Care Provider] - <Marilin Mcneal - Last Filed: 01/12/19 15:15> Provider - Provider Date of Admission: 01/10/19 00:50 Attending physician: Marilin Mcneal MD Primary care physician: Randa Ann MD Consults: 01/10/19 02:23 General Surgery Consult Stat Comment: Consulting Provider: Akin Chong Consulting Physician: Akin Chong Reason for Consult: right thigh abcess 01/10/19 05:13 Inpatient CAFETERIA OPERATOR Core Measures Referral Routine Comment: Physician Instructions: Reason For Exam: met criteria Transition In Care/Readmission Reduction Routine Comment: Physician Instructions: Reason For Exam: met criteria 01/10/19 05:17 Nursing Referral for Wound Care Routine Comment: Physician Instructions: Reason For Exam: met criteria Hospital Course - Lab Results Lab Results: Micro Results 01/10/19 00:10 Blood Blood Culture - Preliminary NO GROWTH AFTER 48 HOURS 01/09/19 23:45 Blood Blood Culture - Preliminary NO GROWTH AFTER 48 HOURS 01/10/19 15:59 Abscess - Abscess Gram Stain - Final Most Recent Lab Values WBC 10.3 10^3/uL (4.5-11.0) 01/12/19 06:40 RBC 3.89 10^6/uL (3.5-6.1) 01/12/19 06:40 Hgb 12.2 g/dL (12.0-16.0) 01/12/19 06:40 Hct 35.4 % (36.0-48.0) L 01/12/19 06:40 MCV 91.0 fl (80.0-105.0) 01/12/19 06:40 MCH 31.4 pg (25.0-35.0) 01/12/19 06:40 MCHC 34.5 g/dl (31.0-37.0) 01/12/19 06:40 RDW 12.6 % (11.5-14.5) 01/12/19 06:40 Plt Count 364 10^3/uL (120.0-450.0) 01/12/19 06:40 MPV 9.2 fl (7.0-11.0) 01/12/19 06:40 Neut % (Auto) 75.8 % (50.0-68.0) H 01/12/19 06:40 Lymph % (Auto) 15.6 % (22.0-35.0) L 01/12/19 06:40 [place] % (Auto) 8.1 % (1.0-6.0) H 01/12/19 06:40 Eos % (Auto) 0.2 % (1.5-5.0) L 01/12/19 06:40 Baso % (Auto) 0.3 % (0.0-3.0) 01/12/19 06:40 Lymph # (Auto) 1.6 (1.2-3.4) 01/12/19 06:40 [place] # (Auto) 0.8 (0.1-0.6) H 01/12/19 06:40 Eos # (Auto) 0.0 (0.0-0.7) 01/12/19 06:40 Baso # (Auto) 0.03 K/mm3 (0.0-2.0) 01/12/19 06:40 Absolute Neuts (auto) 7.82 (1.4-6.5) H 01/12/19 06:40 PT 14.6 SECONDS (9.4-12.5) H 01/09/19 23:45 INR 1.32 01/09/19 23:45 APTT 29.5 Seconds (26.9-38.3) 01/09/19 23:45 pO2 39 mm/Hg (30-55) 01/09/19 23:45 VBG pH 7.46 (7.32-7.43) H 01/09/19 23:45 VBG pCO2 37.0 (40-60) L 01/09/19 23:45 VBG HCO3 26.3 mmol/l (21-28) 01/09/19 23:45 VBG Total CO2 27.4 mmol.L (22-28) 01/09/19 23:45 VBG O2 Sat (Calc) 85.7 % (40-65) H 01/09/19 23:45 VBG Base Excess 2.5 mmol/L (0.0-2.0) H 01/09/19 23:45 VBG Potassium 4.0 mmol/L (3.6-5.2) 01/09/19 23:45 Sodium 124.0 mmol/L (132-148) L 01/09/19 23:45 Chloride 90.0 mmol/L (98-107) L 01/09/19 23:45 Glucose 102 mg/dl (65-105) 01/09/19 23:45 Lactate 0.9 mmol/L (0.7-2.1) 01/09/19 23:45 FiO2 21.0 % 01/09/19 23:45 Sodium 131 mmol/L (132-148) L 01/12/19 06:40 Potassium 3.6 mmol/L (3.6-5.0) 01/12/19 06:40 Chloride 96 mmol/L (98-107) L 01/12/19 06:40 Carbon Dioxide 26 mmol/L (21-33) 01/12/19 06:40 Anion Gap 12 (10-20) 01/12/19 06:40 BUN 6 mg/dL (7-21) L 01/12/19 06:40 Creatinine 0.5 mg/dl (0.7-1.2) L 01/12/19 06:40 Est GFR ( Amer) > 60 01/12/19 06:40 Est GFR (Non-Af Amer) > 60 01/12/19 06:40 Random Glucose 97 mg/dL (70-110) 01/12/19 06:40 Serum Osmolality 263 mosm/kg (272-300) L 01/10/19 07:30 Calcium 8.3 mg/dL (8.4-10.5) L 01/12/19 06:40 Phosphorus 4.7 mg/dL (2.5-4.5) H 01/10/19 07:30 Magnesium 1.9 mg/dL (1.7-2.2) 01/10/19 07:30 Total Bilirubin 0.7 mg/dL (0.2-1.3) 01/12/19 06:40 AST 39 U/L (14-36) H 01/12/19 06:40 ALT 44 U/L (7-56) 01/12/19 06:40 Alkaline Phosphatase 83 U/L (38-126) 01/12/19 06:40 Total Protein 6.1 g/dL (5.8-8.3) 01/12/19 06:40 Albumin 3.1 g/dL (3.0-4.8) 01/12/19 06:40 Globulin 3.0 gm/dL 01/12/19 06:40 Albumin/Globulin Ratio 1.1 (1.1-1.8) 01/12/19 06:40 Free T4 1.17 ng/dL (0.78-2.19) 01/10/19 07:30 TSH 3rd Generation 0.84 mIU/mL (0.46-4.68) 01/10/19 07:30 Cortisol AM Sample 20.5 ug/dL (4.46-22.7) 01/12/19 06:40 Venous Blood Potassium 4.0 mmol/L (3.6-5.2) 01/09/19 23:45 Urine Osmolality 286 mosm/kg (300-1000) L 01/10/19 08:00 Ur Random Sodium 16 meq/L 01/10/19 08:00 Urine Opiates Screen Positive (NEGATIVE) H 01/10/19 08:00 Urine Methadone Screen Negative (NEGATIVE) 01/10/19 08:00 Ur Barbiturates Screen Negative (NEGATIVE) 01/10/19 08:00 Ur Phencyclidine Scrn Negative (NEGATIVE) 01/10/19 08:00 Ur Amphetamines Screen Negative (NEGATIVE) 01/10/19 08:00 U Benzodiazepines Scrn Negative (NEGATIVE) 01/10/19 08:00 U Oth Cocaine Metabols Negative (NEGATIVE) 01/10/19 08:00 U Cannabinoids Screen Negative (NEGATIVE) 01/10/19 08:00 Attending/Attestation - Attestation I have personally seen and examined this patient.: Yes I have fully participated in the care of the patient.: Yes I have reviewed all pertinent clinical information, including history, physical exam and plan: Yes Notes (Text): 01/12/19 15:12 Medical record note made by the resident after discussion with my direction and input after the patient was personally seen and examined by me. I have reviewed the chart and agree that the record accurately reflects by personal performance of the history, physical exam, data review, and medical decision-making, in the course for the patient. I have also personally directed the plan of care. 63 year-old female with PMH of HTN and COPD, depression presented with 3 day history of b/l anterior thigh swelling/redness. Lower extremity CT showed inflammatory changes and abscess formation of right anterior thigh. Surgery was consulted - Dr. Chong.Patient underwent incision and drainage of abscess. Wound cultures and blood cultures are negative for any growth.Patient is afebrile.She will be discharged home on doxycycline. Hyponatremia has improved.HCTZ is discontinued. Patient will be discharged home and will follow up with PCP. Management plan was discussed in detail with patient. Education was provided.
== END 2019-01-12 14:19 | disposition home or self-care (01) | DRG 603 ==
LOC: ED 23:00 → ERH 01-10 00:50 → 5RNO 01-10 03:29
PROVIDERS: ADMIT Internal Medicine; ATTEND Internal Medicine
PROC: 3E0F7GC Introduction of Other Therapeutic Substance into Respiratory Tract, Via Natural or Artificial Opening (ICD-10-PCS; 2019-01-10)
PROC: 0J9L00Z Drainage of Right Upper Leg Subcutaneous Tissue and Fascia with Drainage Device, Open Approach (ICD-10-PCS; principal; 2019-01-10 15:00)
DX: L02.415 Cutaneous abscess of right lower limb (principal); E87.1 Hypo-osmolality and hyponatremia; L03.115 Cellulitis of right lower limb; I10 Essential (primary) hypertension; J44.9 Chronic obstructive pulmonary disease, unspecified; F32.9 Major depressive disorder, single episode, unspecified; R63.1 Polydipsia; Z72.0 Tobacco use; Z90.710 Acquired absence of both cervix and uterus